=== PATIENT | male | born 1980 | race African-American/Black ===

== ENCOUNTER 2017-11-02 14:47 | Observation (INO) | payer SELFPAY ==
[2017-11-02] MEDS ORDERED: Nitroglycerin 2% Ointment 1 INCH/1 GM Packet ONE (15:18)
[2017-11-02 16:41] LABS: Troponin I 0.044 ng/mL (< 0.028)
[2017-11-02] MEDS ORDERED: Ondansetron ODT 4 MG TAB PO PRN (17:07)
[2017-11-02] MEDS ORDERED: Acetaminophen 325 MG TAB PO PRN (17:07)
[2017-11-02 17:15] VITALS: BMI 27.1
[2017-11-02 18:10] LABS: Bilirubin, Direct 1.5 mg/dL (0.1-0.3); Bilirubin, Total 3.3 mg/dL (0.2-1.2)
[2017-11-02 19:54] LABS: Troponin I 0.057 ng/mL (< 0.028)
[2017-11-02 20:27] LABS: Amphetamine Detected (NotDetected); Barbiturates Screen Not Detected (NotDetected); Benzodiazepine Screen Not Detected (NotDetected); Cocaine Metabolite Screen Not Detected (NotDetected); Medtox Control Line Valid? VALID (VALID); Medtox Reader # READER 1; Methadone Not Detected (NotDetected); Methamphetamine Detected (NotDetected); Opiate Screen Not Detected (NotDetected); Oxycodone Screen Not Detected (NotDetected); Phencyclidine (PCP) Not Detected (NotDetected); THC/Cannabinoid Screen Not Detected (NotDetected); Tricyclic Screen Not Detected (NotDetected)
--- NOTE | 2017-11-02 22:42 | HP-2 ---
DATE OF ADMISSION: 11/02/2017 CODE STATUS: FULL. PRIMARY CARE PHYSICIAN: Radha houston. ATTENDING: Gonzalo Contreras M.D. RESIDENT: Clif oGld D.O. SPECIALIST: Dr. Mendez, Cardiology. CHIEF COMPLAINT: Shortness of breath. HISTORY OF PRESENT ILLNESS: The patient presents with 4 days complaining of shortness of breath with acute worsening approximately 2 days ago. He states that he ran out of his Lasix and he attributes that to the worsening of his shortness of breath and associated cough. He was seen at the [facility] within the last 4 days it was worsen and they gave him some Lasix. He symptomatically improved and sent him home. Since then he has gotten progressively worse. He states that in addition to shortne ss of breath, he has cough; however, he denies orthopnea or chest pain. His last visit with Cardiolo gy was approximately one month ago where they discussed possibly placing an ICD; however, no firm inocencio n was placed. PAST MEDICAL HISTORY: Includes chronic kidney disease stage 2, congestive heart failure with reduced ejection fraction, dilated cardiomyopathy, substance abuse, hypertension, chronic normocytic anemia. PAST SURGICAL HISTORY: Includes a right foot I and D as a child. ALLERGIES: No known drug allergies. MEDICATIONS: Lisinopril 10 mg daily, Coreg 2.5 mg b.i.d., Lasix 40 mg daily, aspirin 81 mg p.o. imelda y. FAMILY HISTORY: He has a younger brother with unknown heart condition. SOCIAL HISTORY: Tobacco: 3 or 4 cigarettes a day for 2 years. EtOH: Social. Drugs: Methamphetam ine smoked. Denies intravenous use, most recent use was 1 week ago. Denies other drug use. REVIEW OF SYSTEMS: General: Denies fever, chills, change in appetite or night sweats. HEENT: Misael es any vision change or eye pain, nasal congestion, rhinorrhea. Respiratory: Admits to cough and sh ortness of breath. Denies congestion. Says that the shortness of breath did improve with Lasix. Ca rdiovascular: Denies chest pain, palpitations. Admits to edema. Gastrointestinal: Denies nausea, vomiting, diarrhea. Genitourinary: Denies incontinence or dysuria. Skin: Denies rashes or lesions . Musculoskeletal: Denies pain or tenderness. Neurologic: Denies weakness or numbness. Psychiatr ic: Denies anxiety or depression. PHYSICAL EXAMINATION: VITAL SIGNS: Blood pressure 157/113, pulse 113, respiratory rate is 18, T-max 98.7, pulse ox 98% on room air, current weight 83.9 kilograms. GENERAL: The patient is alert and oriented x3 in no apparent distress. Well-nourished and appropria tely interactive. HEENT: PERRLA, EOMI with scleral icterus. NECK: No lymphadenopathy with elevated JVD. CARDIOVASCULAR: Tachycardic with a 2/6 systolic murmur, no gallops. RESPIRATORY: Normal effort, no retractions. Clear to auscultation bilaterally. SKIN: Warm, dry without cyanosis or lesions. ABDOMEN: Soft with right lower quadrant tenderness. Normal bowel sounds in all 4 quadrants without masses or distention. EXTREMITIES: There is no clubbing, cyanosis. There is 1+ pitting edema to mid tibia. MUSCULOSKELETAL: Tone is normal. NEUROLOGICAL: No focal neurological deficits. Cranial nerves II-XII are grossly intact. PSYCHIATRIC: Appropriate. LABORATORY DATA: CBC: Hemoglobin 12.4, hematocrit 38.3, white count 6.2, platelets 273, MCV is 80. CMP: Sodium is 140, potassium is 3.6, chloride is 107. Bicarb is 21, BUN is 18, creatinine is 1.26 , glucose 154, GFR is 72, calcium is 9.5, total serum protein 7.9, albumin is 3.6, bilirubin is 3.2, AST 35, ALT 37, alkaline phosphatase 81, CK-MB 1.7, troponin 0.041, BNP 2696. VBG shows a pH of 7.41 , pCO2 of 37.5 and pO2 of 38.4. EKG shows left axis deviation, left atrial enlargement and sinus tac hycardia without ST segment elevation or depression. Chest x-ray shows mild vascular congestion. ASSESSMENT AND PLAN: This is a 36-year-old male with an acute congestive heart failure exacerbation. 1. Acute congestive heart failure exacerbation. The patient currently has no oxygen requirement. W e will monitor his oxygen status and give oxygen as needed. We will continue p.o. Lasix and 1500 mg fluid restriction with strict I's and O's. There is no need for echocardiogram that was completed in 02/2017, which is noted to be 25% ejection fraction. We continue to trend his troponins and admit t he patient to tele observation. 2. Hypertension. We will continue his home medications, compliance is questionable after a day of h is home medications, we reevaluate his hypertension and adjust as needed and also add hydralazine p.r .n. 3. Chronic kidney disease stage 2. The patient is at his baseline and monitor CMP. 4. Hyperbilirubinemia and a fractionated bilirubin. This is most likely elevated to hepatic congest ion secondary to the volume overload. 5. Elevated AST. We will get a right upper quadrant ultrasound in light of the elevated bilirubin. Monitor CMP. 6. Normocytic anemia, is chronic in nature. We will consider for further workup in an outpatient se tting. 7. Substance abuse. The patient admits to methamphetamine use, denies IV drug use. We will order U DS and counseled on cessation. 8. Symptomatic medications will be provided. This history, physical and management were discussed with Dr. Gonzalo Contreras.
[2017-11-03 04:29] LABS: #Eosinphils 0.1 thou/uL (0.0-0.7); #Lymphocytes 2.2 thou/uL (1.20-3.40); #Monocytes 0.5 thou/uL (0.11-0.59); #Neutrophils 2.6 thou/uL (1.40-6.50); %Basophils 0.9 % (0.0-1.0); %Eosinophils 2.3 % (0.0-10.0); %Lymphocytes 39.8 % (21.0-51.0); %Monocytes 9.4 % (0.0-10.0); %Neutrophils 47.7 % (42.0-75.0); Hemoglobin 12.1 g/dL (14.0-18.0); Mean Corpuscular HGB CONC 31.8 g/dL (32.0-36.0); Mean Corpuscular Hemoglobin 26.1 pg (27.0-31.0); Mean Corpuscular Volume 82.3 fl (80.0-94.0); Mean Platelet Volume 8.6 fL (7.4-10.4); Platelet Count 270 thou/uL (130-400); RBC Distribution Width 16.5 % (11.5-14.5); Red Blood Cell (RBC) Count 4.63 mill/uL (4.70-6.10); White Blood Cell (WBC) Count 5.5 thou/uL (4.8-10.8)
[2017-11-03 04:39] LABS: Anion Gap 10 mmol/L (10-20); BUN (Urea Nitrogen) 20 mg/dL (8.9-20.6); Calc. Creatinine Clearance 97 mL/min (70-130); Calcium 9.5 mg/dL (7.8-10.44); Carbon Dioxide 25 mmol/L (22-29); Chloride 105 mmol/L (98-107); Estimated GFR-MDRD 70; Glucose 117 mg/dL (70-105); Potassium 3.7 mmol/L (3.5-5.1); Sodium 136 mmol/L (136-145)
[2017-11-03] MEDS ORDERED: Furosemide 40 MG/4 ML VIAL SLOW IVP SCH (06:00)
[2017-11-03 06:20] LABS: Troponin I 0.044 ng/mL (< 0.028)
--- NOTE | 2017-11-03 07:45 | PDOC.FM ---
- Subjective Subjective: Pt feels much better today. He states that his SOB and cough have totally resolved. He denies other symptoms in ROS to include chest pain, dizziness, and edema. There were no acute events over night. - Objective Vital Signs & Weight: Vital Signs (12 hours) Temp Pulse Resp BP Pulse Ox 11/03/17 03:10 98.0 F 105 H 22 H 135/107 H 99 11/02/17 23:05 98.9 F 97 18 132/92 H 97 11/02/17 20:46 98 11/02/17 20:02 97.6 F 100 16 Weight Weight 92.079 kg I&O: 11/02/17 11/03/17 11/04/17 06:59 06:59 06:59 Intake Total 884 Output Total 450 Balance 434 Result Diagrams: 11/03/17 04:04 11/03/17 04:04 <Clif Gold - Last Filed: 11/03/17 07:43> - Objective Vital Signs & Weight: Vital Signs (12 hours) Temp Pulse Resp BP Pulse Ox 11/03/17 08:10 97.9 F 99 16 11/03/17 07:42 97.9 F 99 16 149/95 H 100 11/03/17 03:10 98.0 F 105 H 22 H 135/107 H 99 Weight Weight 92.079 kg I&O: 11/02/17 11/03/17 11/04/17 06:59 06:59 06:59 Intake Total 884 240 Output Total 450 2100 Balance 434 -1860 Result Diagrams: 11/03/17 04:04 11/03/17 04:04 <Omar Prado - Last Filed: 11/03/17 11:31> Phys Exam - Physical Examination Constitutional: NAD HEENT: PERRLA, moist MMs Neck: no nodes, no JVD Respiratory: clear to auscultation bilateral Cardiovascular: RRR, no significant murmur Gastrointestinal: soft, non-tender, no distention, positive bowel sounds Trace edema in bl ankle Neurological: non-focal, normal sensation, moves all 4 limbs Lymphatic: no nodes Psychiatric: normal affect, A&O x 3 Skin: no rash <Clif Gold - Last Filed: 11/03/17 07:43> Dx/Plan (1) Acute on chronic systolic (congestive) heart failure Code(s): I50.23 - ACUTE ON CHRONIC SYSTOLIC (CONGESTIVE) HEART FAILURE Status : Acute (2) Cardiomyopathy Code(s): I42.9 - CARDIOMYOPATHY, UNSPECIFIED Status: Chronic QualifierTitle: Cardiomyopathy type: dilated Qualified Code(s): I42.0 - Dilated cardiomyopathy (3) HTN (hypertension) Code(s): I10 - ESSENTIAL (PRIMARY) HYPERTENSION Status: Chronic (4) Substance abuse Code(s): F19.10 - OTHER PSYCHOACTIVE SUBSTANCE ABUSE, UNCOMPLICATED Status: Chronic (5) Hyperbilirubinemia Code(s): E80.6 - OTHER DISORDERS OF BILIRUBIN METABOLISM Status: Acute - Plan Plan: 1. Acute on Chronic sCHF - symptoms have resolved, pt appears to be euvolemic - continue beta betzy - pt had discussion w/normal insurance operations rep, Dr Torres, about an AICD. I will attempt to contact him for further insight into his plan 2. cardiomyopathy - cause of CHF - pt has had recent echo and is followed by cards. - continue management as above 3. Hyperbilirubinemia - unconjugated. Most likely Gilbert's vs hepatic congestion - Trended down 4. HTN - not at goal, however only marginally elevated. - recommend outpatient follow up for med dosing as this elevation could be stress related. 5. 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 Gold. I agree with the History, Examination, Assessment and Plan documented above with any addition or exceptions noted below. Patient admitted for mild CHF exacerbation due to medication noncompliance. He is also meth positive, which he has a history of. He is feeling well and has no shortness of breath or supplemental O2 requirement. He is stable for discharge home. <Omar Prado - Last Filed: 11/03/17 11:31>
[2017-11-03 08:06] VITALS: BP 149/95; TEMP 97.9
[2017-11-03] MEDS ORDERED: Enoxaparin Sodium 40 MG/0.4 ML SYRINGE SC SCH (09:00)
[2017-11-03] MEDS ORDERED: Carvedilol 25 MG TAB PO SCH (09:00)
[2017-11-03] MEDS ORDERED: Lisinopril 10 MG TAB PO SCH (09:00)
--- NOTE | 2017-11-03 09:13 | ULT ---
GALLBLADDER ULTRASOUND: Date: 11/03/17 INDICATION: Hyperbilirubinemia with shortness of breath. FINDINGS: No focal hepatic lesion. There is mild gallbladder wall thickening which is decreased in echogenicity at approximately 4.0 mm. This could relate to wall edema or alternatively entity such as cholesterol osis. No shadowing cholelithiasis. No evidence of abnormal biliary ductal dilatation. Plascencia's sign r eported as negative. The portal vein is patent, although there is an arterialization of flow demonstr ated, of indeterminate etiology. There is prominence of the imaged IVC. IMPRESSION: 1. Mild gallbladder wall thickening as above. Plascencia's sign reported as negative. Correlate clinical ly. 2. Altered waveform of the portal vein. This is nonspecific and of indeterminate etiology. Correlate for clinical evidence of portal hypertension. Gastroenterology consultation may also prove useful. POS: ENOC
--- NOTE | 2017-11-03 22:55 | DIS-2 ---
DATE OF ADMISSION: 11/02/2017 DATE OF DISCHARGE: 11/03/2017 RESIDENT: Clif Gold DO ADMITTING ATTENDING: Gonzalo Contreras M.D. DISCHARGE ATTENDING: Omar Prado MD CONSULTS: None. PROCEDURES: None. PRIMARY DIAGNOSIS: Acute congestive heart failure exacerbation. SECONDARY DIAGNOSES: Congestive heart failure with reduced ejection fraction, EF of 20-25%, CKD 2, c hronic normocytic anemia, and unconjugated hyperbilirubinemia. DISCHARGE MEDICATIONS: Coreg 12.5 mg p.o. daily, lisinopril 10 mg p.o. daily, furosemide 40 mg p.o. daily, aspirin 81 mg daily. DISCONTINUED MEDICATIONS: None. HOSPITAL COURSE: The patient was admitted from an outside facility with an acute CHF exacerbation. Upon arrival to the emergency room, the patient was given Lasix for diuresis. Abnormal labs at the t wiliam of admission included an elevated troponin to 0.044, hyperbilirubinemia to a level of 3.3. While admitted, the patient's troponins were trended with a maximum level of 0.057. This is most likely d ue to demand ischemia. Additionally, the patient's hyperbilirubinemia was determined to be most like ly related to a prior incision due to the fact that it was unconjugated. This could also be signific ant for Gilbert's disease. At no point during the time of hospitalization did the patient require ox ygen. The patient diuresed well while admitted and by the following morning was stable for discharge . Most likely reason for this patient's exacerbation is the fact that he had run out of his medicati ons. The patient has good outpatient followup and is typically well controlled. It was recommended to the patient that he follow up with his phlebotomy instructor and with the [facility] within a week of disch arge and his medications were refilled from the hospital. DISPOSITION: Stable. DISCHARGE INSTRUCTIONS: 1. Location: Home. 2. Diet: Heart healthy with 1500 mL per day of water restriction. 3. Activity within cardiopulmonary limits. 4. Follow up with Cardiology, Dr. Mendez and the [facility]F Clinic within a week or as previously scheduled.
== END 2017-11-03 13:24 | disposition home or self-care (01) ==
LOC: ERS 14:47 → 2SW 17:01
PROVIDERS: ADMIT Student in an Organized Health Care Education/Training Program; ATTEND Student in an Organized Health Care Education/Training Program
DX: I13.0 Hypertensive heart and chronic kidney disease with heart failure and stage 1 through stage 4 chronic kidney disease, or unspecified chronic kidney disease (principal); N18.2 Chronic kidney disease, stage 2 (mild); I50.9 Heart failure, unspecified; I42.0 Dilated cardiomyopathy; D64.9 Anemia, unspecified; E80.6 Other disorders of bilirubin metabolism; F17.210 Nicotine dependence, cigarettes, uncomplicated; F15.10 Other stimulant abuse, uncomplicated; R74.0 Nonspecific elevation of levels of transaminase and lactic acid dehydrogenase [LDH]; Z79.82 Long term (current) use of aspirin; Z79.899 Other long term (current) drug therapy; Z98.890 Other specified postprocedural states
CPT/HCPCS: 36415; 76705; 80048; 80306; 82247; 84484; 85025; 93005; 93798; 96372; 96374; G0378; J1650; J1940

== ENCOUNTER 2018-05-10 16:45 | Inpatient (IN) | payer SELFPAY ==
[2018-05-10 18:07] LABS: Bilirubin Negative (Negative); Blood, Urine Small (Negative); Clarity CLEAR (Clear); Glucose, Urine (Dipstick) Negative (Negative); Leukocyte Negative (Negative); Nitrite Negative (Negative); Protein, Urine (Dipstick) Negative (Neg-Trace); Specific Gravity, Urine 1.004 (1.002-1.036); pH, Urine 6.5 (5.0-9.0)
[2018-05-10 18:12] LABS: Bacteria/HPF None Seen HPF (None Seen); Hyaline Casts/LPF 0-3 HYALINE CAST LPF (0-3 Hyaline); Squamous Epithelial None Seen HPF (0-3); WBC/HPF None Seen HPF (0-3)
[2018-05-10 18:14] LABS: Acetaminophen Less than 6.0 mcg/mL (10.0-30.0); Alcohol Less than 10 mg/dL (Less than 10); Salicylate Less than 8.0 mg/dL (15.0-30.0)
[2018-05-10 18:21] LABS: Amphetamine Not Detected (NotDetected); Barbiturates Screen Not Detected (NotDetected); Benzodiazepine Screen Not Detected (NotDetected); Cocaine Metabolite Screen Not Detected (NotDetected); Medtox Control Line Valid? VALID (VALID); Medtox Reader # READER 1; Methadone Not Detected (NotDetected); Methamphetamine Not Detected (NotDetected); Opiate Screen Not Detected (NotDetected); Oxycodone Screen Not Detected (NotDetected); Phencyclidine (PCP) Not Detected (NotDetected); THC/Cannabinoid Screen Not Detected (NotDetected); Tricyclic Screen Not Detected (NotDetected)
[2018-05-10 18:50] LABS: Troponin I Less than 0.010 ng/mL (< 0.028)
[2018-05-10] MEDS ORDERED: Ondansetron ODT 4 MG TAB SL PRN (20:52)
[2018-05-10] MEDS ORDERED: Ondansetron HCl/PF 4 MG/2 ML Vial IVP PRN ×2 (20:52→21:42)
[2018-05-10] MEDS ORDERED: Nitroglycerin 2% Ointment 1 INCH/1 GM Packet TOP SCH (21:00)
[2018-05-10] MEDS ORDERED: Calcium Carbonate 500 MG ChewTAB PO PRN (21:42)
[2018-05-10] MEDS ORDERED: Acetaminophen 325 MG TAB PO PRN (21:42)
[2018-05-10] MEDS ORDERED: Ondansetron ODT 4 MG TAB PO PRN (21:42)
[2018-05-10] MEDS ORDERED: Senokot 8.6 MG TAB PO PRN (21:42)
[2018-05-10] MEDS ORDERED: Nitroglycerin 0.4 MG TAB (25 Tab Bottle) PO PRN (21:47)
--- NOTE | 2018-05-10 21:49 | PDOC.EVN ---
Event Note - Event Note Event Note: Patient seen and examined for CHF exacerbation.
[2018-05-10 21:55] VITALS: BMI 28.6
[2018-05-11] MEDS: Furosemide 40 MG/4 ML VIAL SLOW IVP SCH ×2 (05:55→14:45)
[2018-05-11] MEDS ORDERED: Furosemide 40 MG/4 ML VIAL SLOW IVP SCH (06:00)
[2018-05-11 06:30] LABS: ALT (SGPT) 15 U/L (8-55); AST (SGOT) 24 U/L (5-34); Albumin 3.3 g/dL (3.5-5.0); Alkaline Phosphatase 94 U/L (40-150); Anion Gap 13 mmol/L (10-20); BUN (Urea Nitrogen) 15 mg/dL (8.9-20.6); Bilirubin, Total 3.5 mg/dL (0.2-1.2); Calc. Creatinine Clearance 119 mL/min (70-130); Calcium 8.9 mg/dL (7.8-10.44); Carbon Dioxide 22 mmol/L (22-29); Chloride 107 mmol/L (98-107); Estimated GFR-MDRD 89; Glucose 125 mg/dL (70-105); Magnesium 1.5 mg/dL (1.6-2.6); Potassium 3.2 mmol/L (3.5-5.1); Protein, Total 7.3 g/dL (6.0-8.3); Sodium 139 mmol/L (136-145)
[2018-05-11] MEDS ORDERED: Magnesium 2 GM/NS 0.9% 100 ML 2 GM in Premix Bag 1 BAG IVPB SCH (08:00)
--- NOTE | 2018-05-11 08:04 | HP ---
The patient was seen and examined on 05/10/2018. CHIEF COMPLAINT: Shortness of breath. HISTORY OF PRESENT ILLNESS: The patient is a 37-year-old male with chronic systolic and diastolic heart failure, noncompliant with his medication, presented to the emergency room with shortness of breath that has been ongoing for a week or so. He gets short of breath on lying down flat. He noticed bilateral lower extremity swelling. He gets short of breath on mild to moderate exertion. He had mild cough without significant production. No fever , chills, wheezing, recent immobilization, travel, chest pain, palpitations, syncope reported. PAST MEDICAL HISTORY: 1. Chronic systolic/diastolic heart failure. 2. Chronic kidney disease stage 2. 3. Dilated cardiomyopathy. 4. History of polysubstance abuse. 5. Hypertension. 6. Chronic anemia. PAST SURGICAL HISTORY: Right foot surgery. ALLERGIES: No known drug allergies. CURRENT HOME MEDICATIONS: Patient is out of all of his medications. SOCIAL HISTORY: The patient currently lives at home, continues to smoke on a daily basis. He has a long history of methamphetamine abuse. He denies significant alcohol. FAMILY HISTORY: Younger brother with some heart condition. He is unable to provide details. PHYSICAL EXAMINATION: VITAL SIGNS: Vital signs on ER arrival showed temperature 97.9, respirations 28 , pulse rate of 120, blood pressure 158/125. GENERAL: A 37-year-old male in mild respiratory distress, able to complete short sentences. HEENT: Head atraumatic, normocephalic. Sclerae are anicteric. Moist mucous membrane, no oral lesion. NECK: Supple. No carotid bruit, JVD elevated. LUNGS: Showed bibasilar rales with scattered rhonchi, no wheezing. There was mild accessory muscle use. HEART: S1, S2 present. Regular rate and rhythm, 2/6 systolic murmur over the mitral area. No heaves or pulsation. ABDOMEN: Soft, nontender, bowel sounds present. EXTREMITIES: 3+ edema bilateral lower extremities, pitting. No calf tenderness. SKIN: Warm and dry. LYMPH NODES: No palpable lymph nodes in the neck. PERIPHERAL VASCULAR: Radial pulses palpable bilaterally. MUSCULOSKELETAL: No joint swelling or tenderness. LYMPH NODES: No palpable lymph nodes in the neck. PERIPHERAL VASCULAR: Radial pulses palpable bilaterally. MUSCULOSKELETAL: No joint swelling or tenderness. LABORATORY FINDINGS: BNP 2500. Potassium 3.2, total bilirubin 3.1, sodium 138 , potassium 3.2. CBC showed WBC 5.7 with hemoglobin 10.7. Urine drug screen was negative. Chest x-ray by my review showed pulmonary vascular congestion. EKG by my review showed sinus tachycardia with left ventricular hypertrophy and nonspecific ST-T wave changes. Corrected QT interval was 475, QRS duration was 88 milliseconds. IMPRESSION: 1. Acute on chronic systolic and diastolic heart failure exacerbation secondary to noncompliance. Start IV diuretics, Cont NTG patch, Resume ACEI/ Coreg. Add fluid restriction. 2. Hypertensive urgency. Add PRN meds, Add ACEI/Coreg 3. Chronic kidney disease stage 2. 4. Elevated liver function tests secondary to passive hepatic congestion. 5. History of substance abuse. Counselled. 6. Tobacco dependence. Counselled. 7. Chronic anemia. 8. Medication noncompliance. 9. Hypokalemia. Will replace Plan of care was discussed with the patient in detail. He stated understanding. MTDD
[2018-05-11] MEDS: Lisinopril 2.5 MG TAB PO SCH (08:17)
[2018-05-11] MEDS: Docusate 100 MG CAP PO SCH ×2 (08:17→20:18)
[2018-05-11] MEDS: Carvedilol 3.125 MG TAB PO SCH ×2 (08:17→20:18)
[2018-05-11] MEDS: Potassium Chloride 20 MEQ TAB PO SCH ×3 (08:17→16:39)
[2018-05-11] MEDS: Aspirin 81 mg Enteric Coated Tablet PO SCH (08:17)
[2018-05-11] MEDS: Famotidine 20 MG TAB PO SCH ×2 (08:17→20:18)
[2018-05-11] MEDS ORDERED: Aspirin 325 MG TAB PO SCH (09:00)
--- NOTE | 2018-05-11 21:49 | PDOC.PN ---
- Subjective Encounter Start Date: 05/11/18 Encounter Start Time: 12:00 Patient seen and examined for CHF flare. SOB improving. No overnight events. No CP/palpitations. - Objective Resuscitation Status: Resuscitation Status FULL:Full Resuscitation MAR Reviewed: Yes Vital Signs & Weight: Vital Signs (12 hours) Temp Pulse Resp BP BP Pulse Ox 05/11/18 20:00 97.8 F 92 20 126/89 99 05/11/18 16:35 97.5 F L 94 14 141/84 H 100 05/11/18 12:55 97.9 F 98 16 153/93 H 96 Weight Weight 205 lb 8 oz I&O: 05/10/18 05/11/18 05/12/18 06:59 06:59 06:59 Intake Total 600 580 Output Total 1650 3200 Balance -1050 -2620 Result Diagrams: 05/13/18 04:39 EKG Reviewed by me: Yes (Tele SR, NSVT earlier) Phys Exam - Physical Examination Constitutional: NAD Neck: no JVD, supple Respiratory: no wheezing, no rhonchi, clear to auscultation bilateral Bibasilar rales Cardiovascular: RRR, no rub no heaves/pulsations Gastrointestinal: soft, non-tender, no distention, positive bowel sounds Musculoskeletal: edema present (improving) Neurological: non-focal, normal sensation, moves all 4 limbs Psychiatric: normal affect, A&O x 3 Skin: no rash Dx/Plan - Plan DVT proph w/SCDs IMPRESSION: 1. Acute on chronic systolic and diastolic heart failure exacerbation secondary to noncompliance. 2. Hypertensive urgency. Add PRN meds, Add ACEI/Coreg 3. Electrolyte abnormalities - Hypokalemia, Hypomagnesemia 4. NSVT 5. Elevated liver function tests secondary to passive hepatic congestion. 6. History of substance abuse. Counselled. 7. Tobacco dependence. Counselled. 7. Chronic anemia/Medication noncompliance/Chronic kidney disease stage 2. PLAN: Cont IV diuretics Resume ACEI/Coreg Cont fluid restriction. Consult Cardiology for NSVT Replace Potassium and Magnesium Review of Systems - Review of Systems Respiratory: SOB with Excertion. negative: Cough, Dry, Shortness of Breath, Hemoptysis, Pleuritic Pain, Sputum, Wheezing Cardiovascular: negative: chest pain, palpitations, orthopnea, paroxysmal nocturnal dyspnea, edema, light headedness, other - Medications/Allergies Allergies/Adverse Reactions: Allergies Allergy/AdvReac Type Severity Reaction Status Date / Time No Known Drug Allergies Allergy Verified 05/17/17 23:29 Medications: Current Medications Acetaminophen (Tylenol) 650 mg PO Q4H PRN PRN Reason: Headache/Fever or Pain Aspirin (Ecotrin) 81 mg PO DAILY [facility] Last Admin: 05/11/18 08:17 Dose: 81 mg Calcium Carbonate (Tums) 1,000 mg PO Q4H PRN PRN Reason: Heartburn or Indigestion Carvedilol (Coreg) 3.125 mg PO BID [facility] Last Admin: 05/11/18 20:18 Dose: 3.125 mg Docusate Sodium (Colace) 100 mg PO BID [facility] Last Admin: 05/11/18 20:18 Dose: Not Given Famotidine (Pepcid) 20 mg PO BID [facility] Last Admin: 05/11/18 20:18 Dose: 20 mg Furosemide (Lasix) 40 mg SLOW IVP 0600,1400 [facility] Last Admin: 05/11/18 14:45 Dose: 40 mg Lisinopril (Zestril) 2.5 mg PO DAILY [facility] Last Admin: 05/11/18 08:17 Dose: 2.5 mg Nitroglycerin (Nitrostat) 0.4 mg PO Q5MIN PRN PRN Reason: Chest Pain Ondansetron HCl (Zofran Odt) 4 mg PO Q6H PRN PRN Reason: Nausea/Vomiting Ondansetron HCl (Zofran) 4 mg IVP Q6H PRN PRN Reason: Nausea/Vomiting Potassium Chloride (K-Dur) 20 meq PO TID[facility] Last Admin: 05/11/18 16:39 Dose: 20 meq Senna (Senokot) 2 tab PO HSPRN PRN PRN Reason: Constipation Sodium Chloride (Flush - Normal Saline) 10 ml IVF PRN PRN PRN Reason: Saline Flush Last Admin: 05/11/18 08:17 Dose: 10 ml
[2018-05-12 05:05] LABS: Anion Gap 14 mmol/L (10-20); BUN (Urea Nitrogen) 17 mg/dL (8.9-20.6); Calc. Creatinine Clearance 116 mL/min (70-130); Calcium 9.3 mg/dL (7.8-10.44); Carbon Dioxide 24 mmol/L (22-29); Chloride 105 mmol/L (98-107); Estimated GFR-MDRD 86; Glucose 100 mg/dL (70-105); Magnesium 1.6 mg/dL (1.6-2.6); Potassium 3.4 mmol/L (3.5-5.1); Sodium 140 mmol/L (136-145)
[2018-05-12] MEDS: Furosemide 40 MG/4 ML VIAL SLOW IVP SCH ×2 (05:48→14:33)
[2018-05-12] MEDS ORDERED: Magnesium 2 GM/NS 0.9% 100 ML 2 GM in Premix Bag 1 BAG IVPB SCH (07:45)
[2018-05-12] MEDS: Lisinopril 2.5 MG TAB PO SCH (10:24)
[2018-05-12] MEDS: Potassium Chloride 20 MEQ TAB PO SCH ×2 (10:24→18:14)
[2018-05-12] MEDS: Carvedilol 3.125 MG TAB PO SCH (10:25)
[2018-05-12] MEDS: Docusate 100 MG CAP PO SCH ×2 (10:25→21:32)
[2018-05-12] MEDS: Famotidine 20 MG TAB PO SCH ×2 (10:25→21:32)
[2018-05-12] MEDS: Aspirin 81 mg Enteric Coated Tablet PO SCH (10:25)
[2018-05-12] MEDS ORDERED: Spironolactone 25 MG TAB PO SCH (16:15)
--- NOTE | 2018-05-12 17:44 | PRG ---
DATE OF SERVICE: 05/12/2018 SUBJECTIVE: Mr. Fong is feeling well. He is diuresing well -3.3 liters yesterday. His edema has decreased. OBJECTIVE: VITAL SIGNS: Blood pressure 132/89, pulse 97 to regular. LUNGS: Clear. CARDIAC: Normal S1, normal S2. ABDOMEN: Soft, nontender. EXTREMITIES: Only mild edema. ASSESSMENT: 1. Cardiomyopathy. 2. Mildly hypokalemic. PLAN: 1. Add a spironolactone. 2. Continue to replete potassium. 3. Consider increasing carvedilol dose tomorrow. 4. ? candidate for defibrillator implantation. 5. Recheck base met tomorrow.
--- NOTE | 2018-05-12 22:36 | CON ---
DATE OF CONSULTATION: 05/12/2018 CARDIOLOGY CONSULTATION REASON FOR CONSULTATION: Congestive heart failure. 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 HISTORY OF PRESENT ILLNESS: Mr. Ian Fong is a very pleasant patient previously seen and evalua anali by Dr. Mendez, also has seen Dr. Powers. The patient has a history of dilated cardiomyopathy thoug ht to be nonischemic secondary to drug use. He underwent cardiac catheterization, did not have obstr uctive coronary disease. He was diagnosed with dilated cardiomyopathy. He did wear a LifeVest for s ome time. Later was taken off the LifeVest because he could not afford to continue it. He was suppo sed to be enrolled in the Entrest[employer] trial, but apparently did not follow up back in 2017. His EF was 10%-15% at that time. The patient was admitted to the hospital with progressive shortness of breath and peripheral edema during this admission. The patient has got a good diuresis. PAST MEDICAL HISTORY: 1. Nonischemic cardiomyopathy. 2. Chronic kidney disease stage 2. 3. History of substance abuse. 4. Hypertension. 5. History of anemia. PAST SURGICAL HISTORY: Right foot surgery. MEDICATIONS: It appeared that he had ran out of all of his medicines. SOCIAL HISTORY: Continued to smoke. FAMILY HISTORY: Younger brother with heart condition. REVIEW OF SYSTEMS: CONSTITUTIONAL: No significant weight gain or loss. VISION: No changes. HEARI NG: No changes. PULMONARY: No cough or wheezing. GASTROINTESTINAL: No nausea, vomiting, diarrhea . SKIN: No rashes. NEUROLOGIC: No unilateral weakness or numbness. PSYCHIATRIC: No unusual depr ession or anxiety. PHYSICAL EXAMINATION: GENERAL: This is a pleasant gentleman in no distress. VITAL SIGNS: His initial blood pressure was very high earlier during the hospitalization 158/125, pu lse of 120. Now, the blood pressure is still high 151/102, pulse 97. EYES: Sclerae nonicteric. MOUTH: Mucous membranes moist. NECK: Supple, no lymphadenopathy. LUNGS: Clear, no wheezing, rales or rhonchi. CARDIAC: Normal S1, normal S2. There is no murmur, rub or gallop. ABDOMEN: Soft, nontender, no hepatosplenomegaly. EXTREMITIES: Warm, dry, no clubbing or cyanosis. There is only mild edema now. PERTINENT LABORATORY DATA AND IMAGING DATA: Potassium is 3.4. Toxicology screen was negative on the . Echocardiogram done a year ago showed severely depressed left ventricular function as mention ed. EKG; sinus rhythm, no acute changes, left axis deviation. Chest x-ray showed severe cardiomegal y. ASSESSMENT: 1. Dilated cardiomyopathy. 2. History of noncompliance. PLAN: 1. Intravenous diuretics probably change to oral tomorrow. 2. Beta blockers, increase Coreg tomorrow. 3. Start spironolactone. 4. Stressed to the patient the importance of taking medicines as prescribed. If the patient's eject ion fraction does not improve with these medicines, defibrillator implantation should be considered. Apparently, the patient was seen last year it is not clear if he is followed up since then.
--- NOTE | 2018-05-12 23:39 | PDOC.PN ---
- Subjective Encounter Start Date: 05/12/18 Encounter Start Time: 13:00 Patient seen and examined for CHF. SOB improving. No CP/SOB. No other complaints. No overnight events - Objective Resuscitation Status: Resuscitation Status FULL:Full Resuscitation MAR Reviewed: Yes Vital Signs & Weight: Vital Signs (12 hours) Temp Pulse Resp BP Pulse Ox 05/12/18 21:30 97.7 F 95 16 126/83 97 05/12/18 15:45 97.5 F L 86 20 135/82 99 05/12/18 11:45 97 20 132/89 100 Weight Weight 196 lb 3.2 oz I&O: 05/11/18 05/12/18 05/13/18 06:59 06:59 06:59 Intake Total 600 1034 1135 Output Total 2141 1967 5565 Balance -1010 -5449 -1327 Result Diagrams: 05/13/18 04:39 EKG Reviewed by me: Yes (Tele SR) Phys Exam - Physical Examination Constitutional: NAD Respiratory: no wheezing, no rhonchi Scat rales at bases Cardiovascular: RRR, no rub Gastrointestinal: soft, non-tender, positive bowel sounds Musculoskeletal: edema present (improving) Neurological: moves all 4 limbs Dx/Plan - Plan out of bed/ambulate, DVT proph w/SCDs IMPRESSION: 1. Acute on chronic systolic and diastolic heart failure exacerbation secondary to noncompliance. improving 2. Hypertensive urgency. 3. Electrolyte abnormalities - Hypokalemia, Hypomagnesemia 4. NSVT 5. Elevated liver function tests secondary to passive hepatic congestion. 6. History of substance abuse. Counselled. 7. Tobacco dependence. Counselled. 7. Chronic anemia/Medication noncompliance/Chronic kidney disease stage 2. PLAN: Replace Electrolytes Cont current dose of IV Lasix Cont Coreg and ACEI AM labs Cont fluid restriction. Cont other meds as below Review of Systems - Review of Systems Respiratory: negative: Cough, Dry, Shortness of Breath, Hemoptysis, SOB with Excertion, Pleuritic Pain, Sputum, Wheezing Cardiovascular: negative: chest pain, palpitations, orthopnea, paroxysmal nocturnal dyspnea, edema, light headedness, other - Medications/Allergies Allergies/Adverse Reactions: Allergies Allergy/AdvReac Type Severity Reaction Status Date / Time No Known Drug Allergies Allergy Verified 05/17/17 23:29 Medications: Current Medications Acetaminophen (Tylenol) 650 mg PO Q4H PRN PRN Reason: Headache/Fever or Pain Aspirin (Ecotrin) 81 mg PO DAILY [facility] Last Admin: 05/12/18 10:25 Dose: 81 mg Calcium Carbonate (Tums) 1,000 mg PO Q4H PRN PRN Reason: Heartburn or Indigestion Carvedilol (Coreg) 6.25 mg PO BID [facility] Docusate Sodium (Colace) 100 mg PO BID [facility] Last Admin: 05/12/18 21:32 Dose: 100 mg Famotidine (Pepcid) 20 mg PO BID [facility] Last Admin: 05/12/18 21:32 Dose: 20 mg Furosemide (Lasix) 40 mg SLOW IVP 0600,1400 [facility] Last Admin: 05/12/18 14:33 Dose: 40 mg Lisinopril (Zestril) 2.5 mg PO DAILY [facility] Last Admin: 05/12/18 10:24 Dose: 2.5 mg Nitroglycerin (Nitrostat) 0.4 mg PO Q5MIN PRN PRN Reason: Chest Pain Ondansetron HCl (Zofran Odt) 4 mg PO Q6H PRN PRN Reason: Nausea/Vomiting Ondansetron HCl (Zofran) 4 mg IVP Q6H PRN PRN Reason: Nausea/Vomiting Potassium Chloride (K-Dur) 40 meq PO BID-[facility] Last Admin: 05/12/18 18:14 Dose: 40 meq Senna (Senokot) 2 tab PO HSPRN PRN PRN Reason: Constipation Sodium Chloride (Flush - Normal Saline) 10 ml IVF PRN PRN PRN Reason: Saline Flush Last Admin: 05/12/18 10:24 Dose: 10 ml Spironolactone (Aldactone) 25 mg PO QAM-[facility]
[2018-05-13 05:14] LABS: Anion Gap 13 mmol/L (10-20); BUN (Urea Nitrogen) 17 mg/dL (8.9-20.6); Calc. Creatinine Clearance 85 mL/min (70-130); Calcium 8.9 mg/dL (7.8-10.44); Carbon Dioxide 25 mmol/L (22-29); Chloride 104 mmol/L (98-107); Estimated GFR-MDRD 63; Glucose 149 mg/dL (70-105); Magnesium 2.1 mg/dL (1.6-2.6); Potassium 4.1 mmol/L (3.5-5.1); Sodium 138 mmol/L (136-145)
[2018-05-13] MEDS: Furosemide 40 MG/4 ML VIAL SLOW IVP SCH (05:45)
[2018-05-13] MEDS ORDERED: Spironolactone 25 MG TAB PO SCH (08:00)
[2018-05-13] MEDS: Potassium Chloride 20 MEQ TAB PO SCH (08:53)
--- NOTE | 2018-05-13 08:57 | PDOC.CTH ---
Cardiology Progress Note - Subjective Awake, sitting up in chair at bedside. Feels much better, denies any shortness of breath or chest pain. States swelling is "almost gone". Has not seen any disease management nurse since last visit to the hospital in February 2017. Was going to the HF , but stopped that as well. Ran out of his medications 1 week ago, has problem getting from his house to the pharmacy. No overnight cardiac events. - Objective Vital Signs Temp Pulse Resp BP BP Pulse Ox 05/13/18 03:58 97.8 F 77 17 126/97 H 99 05/12/18 21:30 97.7 F 95 16 126/83 97 Weight 196 lb 3.2 oz 05/12/18 05/13/18 05/14/18 06:59 06:59 06:59 Intake Total 1034 1615 Output Total 4400 4800 Balance -3281 -6860 - Physical Examination General/Neuro: alert & oriented x3, NAD Neck: no JVD present Lungs: CTA, unlabored respirations Heart: RRR, other: (Tachycardic) Extremities: other: (trace edema to BLE) - Telemetry Telemetry Rhythm: ST/SR 80s-100s - Labs Result Diagrams: 05/13/18 04:39 Troponin/CKMB Troponin I 0.010 ng/mL (< 0.028) 05/10/18 20:28 - Assessment/Plan 1. Nonischemic CM-EF 20-25% 03/08. Volume status much improved, weight down 9 pounds since admission, trace BLE edema. Poor compliance with meds, reinforced importance of strict adherence to HF medications. Transition to PO furosemide, increase carvedilol-titrate up as tolerated. Consideration for ICD insertion if EF does not improve 2. Essential HTN-adequately controlled. 3. CKD-Creatinine 1.52, transition to PO diuretics 4. Hypokalemia-resolved, continue spironolactone 5. History of substance abuse-tox screen negative Schedule echo for today, then okay to d/c. F/U with within 2 weeks. Stress importance of f/u with disease management nurse for continuation of care.
[2018-05-13] MEDS ORDERED: Carvedilol 6.25 MG TAB PO SCH ×2 (09:00→17:00)
[2018-05-13] MEDS ORDERED: Furosemide 40 MG/4 ML VIAL SLOW IVP SCH (09:00)
[2018-05-13] MEDS: Famotidine 20 MG TAB PO SCH (09:04)
[2018-05-13] MEDS: Lisinopril 2.5 MG TAB PO SCH (09:04)
[2018-05-13] MEDS: Aspirin 81 mg Enteric Coated Tablet PO SCH (09:04)
[2018-05-13] MEDS: Docusate 100 MG CAP PO SCH (09:05)
--- NOTE | 2018-05-13 09:49 | PDOC.CTH ---
Cardiology Progress Note - Subjective Awake, sitting up in chair at bedside. Feels much better, - Objective Vital Signs Temp Pulse Resp BP BP Pulse Ox 05/13/18 03:58 97.8 F 77 17 126/97 H 99 05/12/18 21:30 97.7 F 95 16 126/83 97 Weight 196 lb 3.2 oz 05/12/18 05/13/18 05/14/18 06:59 06:59 06:59 Intake Total 1034 1615 Output Total 4400 4800 Balance -1988 -1341 - Labs Result Diagrams: 05/13/18 04:39 Troponin/CKMB Troponin I 0.010 ng/mL (< 0.028) 05/10/18 20:28
[2018-05-13 12:53] VITALS: BP 124/82; TEMP 97.7
[2018-05-13] MEDS ORDERED: Furosemide 40 MG TAB PO SCH (14:00)
--- NOTE | 2018-05-13 18:00 | DIS ---
DATE OF DISCHARGE: 05/13/2018 DISCHARGE DISPOSITION: Home. FOLLOWUP: 1. Follow up with primary care physician at [facility] in 1 week. 2. Follow up with Dr. Kaur in 2 weeks. ALLERGIES: Patient denies any drug allergies. The patient was extensively counseled on congestive heart failure. DISCHARGE MEDICATIONS: Aspirin 81 mg daily, carvedilol 12.5 mg b.i.d., Lasix 40 mg daily, lisinopril 2.5 mg daily, and Aldactone 25 mg daily. Repeat base met after 1 week is recommended. Primary care physician is advised to follow. BRIEF HOSPITAL COURSE: Patient is a 37-year-old male with chronic systolic heart failure, ejection f raction 10% to 15% in the past, medication noncompliance, hypertension, and polysubstance abuse who p resented to the hospital with shortness of breath. Please refer to the history and physical dated for further details. The patient was admitted to the hospital with a diagnosis of acute on chronic systolic and diastolic heart failure exacerbation. He was started on IV diuretics, nitropatch, and was placed on fluid rest riction. ROSIE inhibitor and beta blockers were recently started. He showed good improvement with diu retics. His weight is down to 196 pounds from 205 pounds. He was seen by Cardiology, Dr. Kaur for congestive heart failure as well as nonsustained ventricular tachycardia. Beta betzy dose was inc reased. He had some electrolyte abnormalities including hypokalemia with potassium 3.2 and hypomagne semia with magnesium 1.5 that has been replaced. He has been cleared by Cardiology for discharge aft er an. Echocardiogram will be done prior to discharge. FINAL DIAGNOSES: 1. Acute on chronic systolic and diastolic heart failure exacerbation. 2. Hypertensive urgency. 3. Chronic kidney disease stage 2. 4. Abnormal liver function tests secondary to passive hepatic congestion. 5. History of substance abuse. patient was extensively counseled. 6. Tobacco dependence. Patient was counseled. 7. Chronic anemia. 8. Hypokalemia. 9. Hypomagnesemia. 10. Nonsustained ventricular tachycardia. 11. Medication noncompliance. 12. Chronic anemia. Total time coordinating the discharge of this patient was 33 minutes.
[2018-05-14] MEDS ORDERED: Potassium Chloride 20 MEQ TAB PO SCH (08:00)
--- NOTE | 2018-05-14 08:20 | ADD-PRG ---
DATE OF SERVICE: 05/13/2018 ADDENDUM Mr. Fong as mentioned had severely depressed left ventricular function. He has been started back on heart failure medicines. It has been stressed and it is critical for him to take medicines as pr escribed and the importance of keeping follow up. He needs to be on the medicines for 3 months to se e if his ejection fraction will be over 35%. If not, he may be a candidate for defibrillator implant ation. The patient has not kept follow up in the past. I have told him that it is critical that he k eep followups and take medicines or else the prognosis will be very poor and likely result in early d eath. He understands that.
== END 2018-05-13 16:21 | disposition home or self-care (01) | DRG 291 ==
LOC: ERS 16:45 → 2NO 18:09
PROVIDERS: ADMIT Internal Medicine; ATTEND Internal Medicine
DX: I13.0 Hypertensive heart and chronic kidney disease with heart failure and stage 1 through stage 4 chronic kidney disease, or unspecified chronic kidney disease (principal); I50.43 Acute on chronic combined systolic (congestive) and diastolic (congestive) heart failure; I47.2 Ventricular tachycardia; I25.5 Ischemic cardiomyopathy; E87.6 Hypokalemia; N18.2 Chronic kidney disease, stage 2 (mild); I16.0 Hypertensive urgency; E83.42 Hypomagnesemia; K76.1 Chronic passive congestion of liver; F17.210 Nicotine dependence, cigarettes, uncomplicated; D63.1 Anemia in chronic kidney disease; Z91.14 Patient's other noncompliance with medication regimen; F19.10 Other psychoactive substance abuse, uncomplicated; I42.0 Dilated cardiomyopathy
CPT/HCPCS: 36415; 80048; 80053; 80306; 80307; 81003; 81015; 83735; 93798; 94760; 99285; A4216; J1940; J3475

== ENCOUNTER 2018-10-23 21:32 | Inpatient (IN) | payer SELFPAY ==
--- NOTE | 2018-10-23 23:15 | RAD ---
CHEST ONE VIEW: 10/23/18 HISTORY: 37-year-old male with history of dyspnea, congestive heart failure and shortness of breath. COMPARISON: 10/23/18. Marked cardiomegaly. No confluent pneumonia, overt edema, or pleural effusion. IMPRESSION: Cardiomegaly without other significant acute process. Stable from earlier 10/23/18 study. POS: [facility]
--- NOTE | 2018-10-23 23:35 | PDOC.FPRHP ---
- History of Present Illness Chief Complaint: BLE swelling History of Present Illness: 37 yo AAM with history of HFrEF (EF 25-30%) presents as a transfer from [place] ED for bilateral lower extremity swelling and pain for the past 4 days. In [place] ED, patient had crackles in bilateral lower lobes and CXR showed minimal pulmonary congestion. BNP was elevated to 2200, trop was indeterminate. He was given 40 IV lasix. He had a K of 3.1 and was given 40 meq of K. D-dimer was elevated to 5.8, but CTA showed no PE. Patient states that he has not been following his diet appropriately, and increased salt intake over the holidays. Patient reports he has not taken some of his blood pressure medications today, and has a history of noncompliance. Pt denies chest pain or palpitations, denies wheezing or SOB, denies fevers. EKG shows sinus tachycardia to 108 bpm, with nonspecific T wave changes. In [place], - Allergies/Adverse Reactions Allergies Allergy/AdvReac Type Severity Reaction Status Date / Time No Known Drug Allergies Allergy Verified 10/24/18 00:48 - Home Medications Medication Instructions Recorded Confirmed Type Carvedilol [Coreg] 12.5 mg PO BID #60 tablet 05/13/18 10/24/18 Rx Furosemide [Lasix] 40 mg PO DAILY #14 tab 05/13/18 10/24/18 Rx Lisinopril [Zestril] 10 mg PO DAILY 10/24/18 10/24/18 History - History PMHx: mixed systolic and diastolic CHF, CKD2, dilated cardiomyopathy, hx of polysubstance abuse (meth), tobacco use, HTN, chronic anemia PSHx: left foot surgery FHx: brother with CHF and DM Social: 3 cig/day, started smoking age 16; denies alcohol use, used meth 1 month ago - Review of Systems General: reports: fatigue. denies: fever/chills, weight/appetite/sleep changes Eyes: denies: eye pain, vision changes ENT: denies: nasal congestion, rhinorrhea Respiratory: denies: cough, congestion, shortness of breath, exercise intolerance Cardiovascular: reports: edema. denies: chest pain, palpitation Gastrointestinal: denies: nausea, vomiting, diarrhea, constipation, abdominal pain, GI bleeding Genitourinary: denies: dysuria, polyuria Skin: denies: rashes, lesions Musculoskeletal: reports: pain (legs), swelling Neurological: denies: numbness, syncope, weakness Psychological: denies: anxiety, depression - Vital signs BP: [129/92] HR: [92] RR: [20] Tmax: [98.8] Pox: [100]% on [RA] Wt: [93 kg] - Physical Exam Constitutional: NAD, awake, alert and oriented, well developed HEENT: normocephalic and atraumatic, PERRLA, EOMI, conjunctiva clear, grossly normal hearing, MMM, oropharynx clear Neck: supple, no LAD Heart: RRR, normal S1/S2, other (edema 3+ pitting edema bilat lower extremities with erythema and warmth) -Heart: Systolic 1/6 murmur Lungs: CTAB, no wheezing, other (decreased air movement to bases bilat) Musculoskeletal: normal structure, normal tone Neurological: no focal deficit Skin: no rash/lesions, good turgor, capillary refill <2 seconds Heme/Lymphatic: no unusual bruising or bleeding Psychiatric: normal mood and affect, good judgment and insight, intact recent and remote memory FMR H&P: Results - Labs Result Diagrams: 10/24/18 02:45 - EKG Interpretation EKG: Non specific T wave changes, sinus tachycardia - Radiology Interpretation CT scan - chest Additional comment: No Pulmonary embolus, showed fluid overload Chest x-ray Status: image reviewed by me Additional comment: very mild pulmonary congestion FMR H&P: A/P - Problem List (1) Acute on chronic systolic (congestive) heart failure Current Visit: No Status: Acute Code(s): I50.23 - ACUTE ON CHRONIC SYSTOLIC (CONGESTIVE) HEART FAILURE Comment: prior ef of 10-15% (2) Hypokalemia Current Visit: No Status: Acute Code(s): E87.6 - HYPOKALEMIA (3) CKD (chronic kidney disease) Current Visit: Yes Status: Chronic Code(s): N18.9 - CHRONIC KIDNEY DISEASE, UNSPECIFIED (4) Chronic anemia Current Visit: Yes Status: Chronic Code(s): D64.9 - ANEMIA, UNSPECIFIED (5) Hyperbilirubinemia Current Visit: No Status: Chronic Code(s): E80.6 - OTHER DISORDERS OF BILIRUBIN METABOLISM (6) Polysubstance abuse Current Visit: No Status: Acute Code(s): F19.10 - OTHER PSYCHOACTIVE SUBSTANCE ABUSE, UNCOMPLICATED (7) Cardiomyopathy Current Visit: No Status: Chronic Code(s): I42.9 - CARDIOMYOPATHY, UNSPECIFIED Qualifiers: Cardiomyopathy type: dilated Qualified Code(s): I42.0 - Dilated cardiomyopathy (8) HTN (hypertension) Current Visit: No Status: Chronic Code(s): I10 - ESSENTIAL (PRIMARY) HYPERTENSION Qualifiers: - Plan 37 yo AAM with history of HFrEF (EF 25-30%) presents as a transfer from [facility] with CHF exacerbation CHF exacerbation - HFrEF (EF 20-25%) - Lasix 40 mg IV BID - Admit to tele obs - Echo in AM - Cardiology consult in AM - Trending trops - Strict I/Os - Daily weights - Fluid restrict to 1500 ml/day Elevated Bili - Most likely 2/2 to hepatic congestion - Check fractionated bili Hypokalemia - K 3.1, Received 40 meq in [place] - Recheck K in the AM - Start on 20 meq K daily CKD2 - Continue to monitor Dilated cardiomyopathy - Last EF 25-30% in 02/2017 Meth abuse - aware Tobacco - smokes 3 cig/day HTN -Continue home carvedilol, lisinopril Chronic anemia -consider starting Fe Dispo: most likely discharge tomorrow, pending clinical picture Diet: HH, fluid restricted to 1500 ml/day Code status: full code Ppx: lovenox FMR H&P: Upper Level - Pertinent history 37 yo AAM PMH polysubstance abuse, non-ischemic cardiomyopathy, and HFrEF (20-25 %). Presents as transfer from [facility] with 4 day history of leg swelling and weight gain. States he did not take his coreg today. States he has not been fluid restricting or monitoring his salt intake. No PCP and has not followed up with cardiology for AICD evaluation/placement. Meds prescribed by HF clinic. States the SUPERVIS[employer]CH[employer] at the HF clinic was going to increase his lasix to 40 mg BID but had not yet. States his last methamphetamine use was 1 month ago. ER: Labs, EKG, CXR, lasix 40 mg IVP, KCl 40 mEq PO - Pertinent findings Vital WNL GEN: NAD Lung: CTA-B, normal effort CV: Tachycardic, regular, no murmur Ext: 2+ pitting edema to knees bilaterally. CXR: No acute processes CTA- Chest: No PE, mild pulmonary edema. EKG: Rate 108, sinus tachycardia, No ST elevations, nonspecific ST changes, QTc 493, [place] 152 Labs: BNP 2245, Trop 0.057, 0.055, K+ 3.1, Cr 1.55 (baseline), Bili 2.2, D- dimer 5.8 - Plan Date/Time: 10/23/18 1347 I, Eitan Duran MD, have evaluated this patient and agree with findings/plan as outlined by consultants intern resident. Pertinent changes/additions are listed here. 1. Acute HFrEF exacerbation: BNP near baseline and vitals stable but given hx non-compliance and recent weight gain, will obs for diuresis. Start lasix 40 mg BID IVP, strict I&O, daily wt, repeat TTE in morning since no recent echo. Consider cardiology consultation to discuss AICD placement in hospital vs. outpatient. Will arranged f/u at HF clinic. Restart home medications. 2. Non-ischemic cardiomyopathy: patient admits to continued tobacco and methamphetamine use. Encouraged cessation 3. Tobacco abuse: PRN patch 4. HTN: Home meds. 5. Polysubstance abuse: encouraged cessation 6. Hypokalemia: repeat BMP in AM 7. Elevated troponin: trend x3 8. Hyperbilirubinemia: likely 2/2 hepatic congestion, will check total and direct level 9. CKD3: Stable, monitor BMP - PPx: lovenox - Diet: HH, fluid restrict 1500 mL/day - CODE: FULL - DISPO: OBS, Tele, <[address] Hall. Addendum - Attending - Attending Attestation Date/Time: 10/24/18 7274 I personally evaluated the patient and discussed the management with Dr. Retana. I agree with the History, Examination, Assessment and Plan documented above with any addition or exceptions noted below. The patient was transferred from [place] with CHF exacerbation. Pt had a run of vtach on tele strips this morning. Will continue diuresis. Consulting cardiology for possible aicd. Pt had elevated d-dime though CTA negative. Will check le dopplers.
[2018-10-24 00:21] LABS: CKMB 2.4 ng/mL (0-6.6)
[2018-10-24] MEDS ORDERED: Bisacodyl 10 MG SUPP PR PRN (00:34)
[2018-10-24] MEDS ORDERED: Acetaminophen 325 MG TAB PO PRN (00:34)
[2018-10-24] MEDS ORDERED: Acetaminophen 650 MG Suppository PR PRN (00:34)
[2018-10-24] MEDS ORDERED: Senokot S 8.6-50 MG TAB PO PRN (00:34)
[2018-10-24] MEDS ORDERED: Ondansetron PF 4 MG/2 ML Vial IVP PRN (00:34)
[2018-10-24] MEDS ORDERED: Ondansetron ODT 4 MG TAB PO PRN (00:34)
[2018-10-24] MEDS ORDERED: Enoxaparin Sodium 40 MG/0.4 ML SYRINGE SC SCH (00:45)
[2018-10-24 01:25] VITALS: BMI 29.0
[2018-10-24] MEDS ORDERED: Nicotine 14 MG PATCH TD PRN (01:41)
[2018-10-24 03:20] LABS: Troponin I 0.069 ng/mL (< 0.028)
[2018-10-24 03:22] LABS: Anion Gap 12 mmol/L (10-20); BUN (Urea Nitrogen) 26 mg/dL (8.9-20.6); Calc. Creatinine Clearance 96 mL/min (70-130); Calcium 8.9 mg/dL (7.8-10.44); Carbon Dioxide 24 mmol/L (22-29); Chloride 104 mmol/L (98-107); Estimated GFR-MDRD 66; Glucose 154 mg/dL (70-105); Potassium 3.2 mmol/L (3.5-5.1); Sodium 137 mmol/L (136-145)
[2018-10-24] MEDS: Furosemide 40 MG/4 ML VIAL SLOW IVP SCH ×2 (06:06→14:38)
[2018-10-24 08:21] LABS: Troponin I 0.046 ng/mL (< 0.028)
--- NOTE | 2018-10-24 08:37 | PDOC.FM ---
- Subjective Subjective: This morning patient denies CP, SOB, or orthopnea. States his legs are still somewhat painful but are improving. 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 States "I slipped up" on the meth, but has been clean for a month now. States he is motivated to do whatever he needs to do to get better at this point. patient states he is able to workout daily, doing "pushups , pull-ups, and calisthenics." States he has been taking his carvedilol, lisinorpil, statin, and furosemide as prescribed. he has been getting his medications from the HF clinic. - Objective Vital Signs & Weight: Vital Signs (12 hours) Temp Pulse Resp BP Pulse Ox 10/24/18 07:17 98 F 112 H 17 124/86 100 10/24/18 04:08 98.6 F 111 H 20 116/85 96 10/24/18 00:29 98.0 F 101 H 16 140/102 H 99 Weight Weight 97.296 kg I&O: 10/23/18 10/24/18 10/25/18 06:59 06:59 06:59 Intake Total 304 Output Total 475 700 Balance -171 -700 Result Diagrams: 10/24/18 02:45 Phys Exam - Physical Examination Constitutional: NAD HEENT: PERRLA, moist MMs Neck: no nodes Respiratory: no wheezing mild decreased breath sounds at the bases Cardiovascular: no significant murmur tachycardic, regular rhythm Gastrointestinal: soft, non-tender, no distention, positive bowel sounds Musculoskeletal: pulses present +3 edema to the mid-calf bilaterally Neurological: non-focal, moves all 4 limbs Psychiatric: normal affect, A&O x 3 Skin: no rash, cap refill <2 seconds Dx/Plan (1) Acute on chronic systolic (congestive) heart failure Code(s): I50.23 - ACUTE ON CHRONIC SYSTOLIC (CONGESTIVE) HEART FAILURE Status : Acute (2) Polysubstance abuse Code(s): F19.10 - OTHER PSYCHOACTIVE SUBSTANCE ABUSE, UNCOMPLICATED Status: Acute (3) Cardiomyopathy Code(s): I42.9 - CARDIOMYOPATHY, UNSPECIFIED Status: Chronic Qualifiers: Cardiomyopathy type: dilated Qualified Code(s): I42.0 - Dilated cardiomyopathy (4) CKD (chronic kidney disease) Code(s): N18.9 - CHRONIC KIDNEY DISEASE, UNSPECIFIED Status: Chronic - Plan Plan: 37 yo AAM with history of HFrEF (EF 25-30%) presents as a transfer from [place] [facility] with CHF exacerbation # CHF exacerbation - HFrEF EF 20-25% March 2017, 5% per echo 10/24/18 - Lasix 40 mg IV BID, carvedilol, lisinopril, spironolactone - Cardiology consulted, appreciate recs - trop .057-> .055-> .065, suspect demand ischemia - Strict I/Os, Daily weights, Fluid restrict to 1500 ml/day - discharged in April 2018 at weight of 196lbs, currently weighs 213lbs - only PVCs, sinus tachycardia on tele overnight - Patient may need defibrilator vs lifevest # Hypokalemia - K 3.2 this AM - replete # CKD2 # Meth abuse - 1 mo clean Tobacco - smokes 3 cig/day # HTN -Continue home carvedilol, lisinopril # Elevated Bili - Most likely 2/2 to hepatic congestion - has been elevated historically # Chronic anemia Dispo: pending cardiology eval, diuresis, likely 2-3 days Diet: HH, fluid restricted to 1500 ml/day Code status: full code Ppx: lovenox Addendum - Attending - Attending Attestation Date/Time: 10/24/18 5802 I personally evaluated the patient and discussed the management with Dr. Retana. I agree with the History, Examination, Assessment and Plan documented above with any addition or exceptions noted below. Will continue lasix for diuresis. Consulting cardiology. Changing to inpt.
[2018-10-24] MEDS: Lisinopril 10 MG TAB PO SCH (08:42)
[2018-10-24] MEDS: Carvedilol 6.25 MG TAB PO SCH ×2 (08:42→21:07)
[2018-10-24] MEDS: Potassium Chloride 20 MEQ TAB PO SCH ×3 (08:42→17:04)
[2018-10-24] MEDS: Spironolactone 25 MG TAB PO SCH (08:45)
--- NOTE | 2018-10-24 10:20 | PDOC.EVN ---
Event Note - Event Note Event Note: 5 beats of vtach on tele patient denies cp, weakness, or palpitations Cardiology consulted, appreciate recs ordered bilateral lower ext doppler 2/2 leg pain, elevated dimer
--- NOTE | 2018-10-24 15:34 | ULT ---
BILATERAL LOWER EXTREMITY VENOUS ULTRASOUND WITH DOPPLER: 10/24/18 HISTORY: Elevated D-dimer. Pain. COMPARISON: None. TECHNIQUE: Mendez scale, color flow, doppler imaging and spectral waveform analysis performed in the left and righ t lower extremity venous system. FINDINGS: There is mild edema involving both lower extremities. There are enlarged bilateral inguinal lymph nod es. Video News Editor enlarged left inguinal lymph node measures 2.6 x 0.7 cm and 3.0 x 0.8 cm in the lo ng axis. Enlarged right inguinal lymph node measures 3.6 x 0.7 cm in long axis. Bilaterally, there is compressibility, presence of flow and augmentation in the common femoral vein, femoral vein, and popliteal vein. There is flow in the bilateral greater saphenous vein, profunda vei n and posterior tibial vein. IMPRESSION: No evidence of thrombus in the left or right lower extremity deep venous system. POS: [facility]
[2018-10-24 15:50] LABS: Medtox Reader # READER 1
[2018-10-24 15:51] LABS: Amphetamine Detected (NotDetected); Barbiturates Screen Not Detected (NotDetected); Benzodiazepine Screen Not Detected (NotDetected); Cocaine Metabolite Screen Not Detected (NotDetected); Medtox Control Line Valid? VALID (VALID); Methadone Not Detected (NotDetected); Methamphetamine Detected (NotDetected); Opiate Screen Not Detected (NotDetected); Oxycodone Screen Not Detected (NotDetected); Phencyclidine (PCP) Not Detected (NotDetected); THC/Cannabinoid Screen Not Detected (NotDetected); Tricyclic Screen Not Detected (NotDetected)
[2018-10-24 17:31] LABS: Hemoglobin 10.9 g/dL (14.0-18.0); Mean Corpuscular HGB CONC 32.4 g/dL (32.0-36.0); Mean Corpuscular Hemoglobin 25.5 pg (27.0-31.0); Mean Corpuscular Volume 78.8 fL (78.0-98.0); Mean Platelet Volume 8.3 fL (7.4-10.4); Platelet Count 247 thou/uL (130-400); RBC Distribution Width 14.3 % (11.5-14.5); Red Blood Cell (RBC) Count 4.26 mill/uL (4.70-6.10); White Blood Cell (WBC) Count 4.7 thou/uL (4.8-10.8)
[2018-10-24 17:47] LABS: Anion Gap 13 mmol/L (10-20); BUN (Urea Nitrogen) 26 mg/dL (8.9-20.6); Calc. Creatinine Clearance 86 mL/min (70-130); Calcium 8.8 mg/dL (7.8-10.44); Carbon Dioxide 25 mmol/L (22-29); Chloride 102 mmol/L (98-107); Estimated GFR-MDRD 58; Glucose 98 mg/dL (70-105); Potassium 3.3 mmol/L (3.5-5.1); Sodium 137 mmol/L (136-145)
[2018-10-24 17:55] LABS: Band 1 % (5-11); Eosinophils 1 % (0-10); Hypochromia SLIGHT = 6-15 cells (100X) (0-5/hpf); Lymphocytes 29 % (21-51); MDiff Complete? YES; Monocytes 5 % (0-10); Neutrophil 62 % (42-75); Ovalocytes SLIGHT = 2-5 cells (100X) (0-1/hpf); PLT Morphology Comment Appears Adequate; Polychromasia SLIGHT = 2-3 cells (100X) (0-2/hpf); Reactive Lymphocytes 1 % (0-10); Target Cells SLIGHT = 2-5 cells (100X) (0-1/hpf)
[2018-10-24] MEDS: Magnesium Chloride 64 MG TAB PO SCH (21:08)
[2018-10-24] MEDS: Enoxaparin Sodium 40 MG/0.4 ML SYRINGE SC SCH (21:08)
--- NOTE | 2018-10-24 22:05 | CON ---
DATE OF CONSULTATION: HISTORY OF PRESENT ILLNESS: Ian Fong is a 37-year-old black male with presumably nonischemic cardiomyopathy secondary to drug abuse that was initially evaluated in October 2016 when he had an echo that revealed an ejection fraction of 10% to 15%. He was placed on medications and never did follow up with Dr. Mendez , who was seeing him at that time. He has had several other hospitalizations for congestive heart failure. After Dr. Mendez had moved his practice, he most recently was seen by Dr. Kaur in April 2018. This was when he ran out of all of his medications. He now is admitted with increased leg edema. He states he has not run out of any of his medications. He denies any chest discomfort or shortness of breath. PAST MEDICAL HISTORY: Presumed nonischemic cardiomyopathy, history of substance abuse, chronic kidney disease, hypertension, and history of anemia. OPERATIONS: Right foot surgery. MEDICATIONS: At home include; 1. Lisinopril 10 mg daily. 2. Furosemide 40 mg daily. 3. Carvedilol 12.5 mg b.i.d. ALLERGIES: NONE. SOCIAL HISTORY: He smokes 1 to 2 cigarettes per day. He denies any recent drug abuse. He does not drink. REVIEW OF SYSTEMS: 12-point review of systems otherwise unremarkable. PHYSICAL EXAMINATION: VITAL SIGNS: 111/75, pulse of 95. HEENT: PERRL. NECK: Supple. CHEST: Clear. CARDIAC: S1 and S2 normal without any S3, S4, or murmurs. ABDOMEN: Normal bowel sounds without tenderness. EXTREMITIES: Revealed 2+ pretibial edema to the knee. NEUROLOGIC: Grossly intact. LABORATORY DATA: EKG reveals sinus tachycardia with nonspecific T-wave changes. Chest x-ray reveals cardiomegaly. CT angiogram of the chest revealed no evidence of pulmonary embolism. There was marked cardiomegaly and ascites with mild hepatomegaly. Lower extremity venous ultrasound revealed no evidence of lower extremity deep venous thrombosis. Echocardiogram revealed 4-chamber cardiac enlargement, ejection fraction of 5%-10%, [id number] mitral regurgitation, jmhgvkgl-[id number] tricuspid regurgitation, and moderate pulmonic regurgitation. Urine drug screen is pending. Sodium 137, potassium 3.2, chloride 104, carbon dioxide 24, BUN 26, creatinine 1.46, glucose 154. Troponin I 0.069. Hemoglobin 11.2, hematocrit 35.7, white count 6,600, platelets 310,000. IMPRESSION: 1. Acute on chronic systolic heart failure. 2. Presumably nonischemic cardiomyopathy secondary to drug abuse. 3. History of methamphetamine abuse, urine drug screen pending. 4. The patient continues to smoke. 5. Hypertension. 6. History of anemia. PLAN: The patient will continue to be diuresed with b.i.d. Lasix 40 mg intravenously. Renal function will be monitored closely. Electrophysiology consultation will be obtained to consider possible ICD placement. Job ID: [id number] [facility]
[2018-10-25 05:43] LABS: Hemoglobin 10.6 g/dL (14.0-18.0); Mean Corpuscular HGB CONC 32.1 g/dL (32.0-36.0); Mean Corpuscular Hemoglobin 25.5 pg (27.0-31.0); Mean Corpuscular Volume 79.4 fL (78.0-98.0); Mean Platelet Volume 8.2 fL (7.4-10.4); Platelet Count 242 thou/uL (130-400); RBC Distribution Width 14.1 % (11.5-14.5); Red Blood Cell (RBC) Count 4.14 mill/uL (4.70-6.10); White Blood Cell (WBC) Count 4.8 thou/uL (4.8-10.8)
[2018-10-25 06:00] LABS: Anion Gap 13 mmol/L (10-20); BUN (Urea Nitrogen) 26 mg/dL (8.9-20.6); Calc. Creatinine Clearance 93 mL/min (70-130); Calcium 8.8 mg/dL (7.8-10.44); Carbon Dioxide 25 mmol/L (22-29); Chloride 104 mmol/L (98-107); Estimated GFR-MDRD 64; Glucose 112 mg/dL (70-105); Potassium 3.9 mmol/L (3.5-5.1); Sodium 138 mmol/L (136-145)
[2018-10-25] MEDS: Furosemide 40 MG/4 ML VIAL SLOW IVP SCH ×2 (06:06→18:38)
--- NOTE | 2018-10-25 08:35 | PDOC.FM ---
- Subjective Subjective: This morning patient states he is feeling well. Leg pain is improved, characterized as throbbing which has decreased.. Has been ambulating w/o difficulty. Denies SOB, chest pain, or palpitations. UDS + for amphetamines, patient states he is motivated to change his ways, states he understands gravity of his situation. - Objective Vital Signs & Weight: Vital Signs (12 hours) Temp Pulse Resp BP BP Pulse Ox 10/25/18 07:33 97.6 F 104 H 18 123/86 100 10/25/18 02:57 97.6 F 87 16 109/71 97 10/24/18 21:07 124/86 Weight Weight 96.207 kg I&O: 10/24/18 10/25/18 10/26/18 06:59 06:59 06:59 Intake Total 304 2500 Output Total 475 3775 Balance -171 -3036 Result Diagrams: 10/25/18 04:47 10/25/18 04:47 Phys Exam - Physical Examination Constitutional: NAD HEENT: PERRLA, moist MMs Neck: no nodes, full ROM Respiratory: no wheezing Cardiovascular: RRR, no significant murmur Gastrointestinal: soft, non-tender, no distention, positive bowel sounds Musculoskeletal: pulses present +2 pitting on the R, +3 on L to mid-calf Neurological: non-focal, moves all 4 limbs Psychiatric: normal affect, A&O x 3 Skin: no rash, cap refill <2 seconds Dx/Plan (1) Acute on chronic systolic (congestive) heart failure Code(s): I50.23 - ACUTE ON CHRONIC SYSTOLIC (CONGESTIVE) HEART FAILURE Status : Acute (2) Polysubstance abuse Code(s): F19.10 - OTHER PSYCHOACTIVE SUBSTANCE ABUSE, UNCOMPLICATED Status: Acute (3) Cardiomyopathy Code(s): I42.9 - CARDIOMYOPATHY, UNSPECIFIED Status: Chronic Qualifiers: Cardiomyopathy type: dilated Qualified Code(s): I42.0 - Dilated cardiomyopathy (4) CKD (chronic kidney disease) Code(s): N18.9 - CHRONIC KIDNEY DISEASE, UNSPECIFIED Status: Chronic - Plan Plan: # Chronic HFrEF in acute exacerbation - HFrEF EF 20-25% March 2017, 5-10% per echo 10/24/18 - Lasix 40 mg IV BID, carvedilol, lisinopril, spironolactone - Cardiology consulted, appreciate recs - AICD placement at 2pm today - trop .057-> .055-> .064 -> 0.44 , suspect demand ischemia - Strict I/Os, Daily weights, Fluid restrict to 1500 ml/day - (-)1800ml fluid balance yesterday - discharged in April 2018 at weight of 196lbs, admit weight 213lbs # Hypokalemia- resolved - K 3.9 this AM - replete prn # CKD2 # Meth abuse - 1 mo clean per patient, positive on UDS Tobacco - smokes 3 cig/day, rec'd cessation # HTN -Continue home carvedilol, lisinopril # Elevated Bili - Most likely 2/2 to hepatic congestion - has been elevated historically # Chronic anemia Dispo: AICD placement today, likley 2-3 days more inpt. Diet: HH, fluid restricted to 1500 ml/day Code status: full code Ppx: lovenox Addendum - Attending - Attending Attestation Date/Time: 10/25/18 3718 I personally evaluated the patient and discussed the management with Dr. Retana. I agree with the History, Examination, Assessment and Plan documented above with any addition or exceptions noted below. The patient's lower extremity edema is improving. He will have aicd placed today. Continue IV lasix.
[2018-10-25] MEDS ORDERED: Iopamidol 370 76% 50 ML VIAL FS ONE (10:54)
[2018-10-25] MEDS: Potassium Chloride 20 MEQ TAB PO SCH (11:13)
[2018-10-25] MEDS: Carvedilol 6.25 MG TAB PO SCH ×2 (11:13→22:43)
[2018-10-25] MEDS: Spironolactone 25 MG TAB PO SCH (11:13)
[2018-10-25] MEDS: Magnesium Chloride 64 MG TAB PO SCH ×2 (11:14→22:44)
[2018-10-25] MEDS: Lisinopril 10 MG TAB PO SCH (11:14)
[2018-10-25] MEDS ORDERED: CEFAZOLIN 2 GM/50 ML BAG ONE (16:42)
[2018-10-25] MEDS ORDERED: KETAMINE 100 MG/ML (5ML VIAL) ONE (17:24)
[2018-10-25] MEDS ORDERED: Phenylephrine HCL 10 MG/ML VIAL ONE (17:25)
[2018-10-25] MEDS ORDERED: Propofol 500 MG/50 ML VIAL ONE ×2 (17:25→18:20)
[2018-10-25] MEDS ORDERED: Acetaminophen/Codeine 30-300mg Tablet PO PRN ×2 (21:15)
[2018-10-25] MEDS ORDERED: diphenhydrAMINE 25 MG CAP PO PRN (21:40)
--- NOTE | 2018-10-25 22:14 | CON ---
DATE OF CONSULTATION: 10/25/2018 This is an electrophysiology consultation. REASON FOR CONSULTATION: Nonischemic cardiomyopathy. HISTORY OF PRESENT ILLNESS: Mr. Fong is a 37-year-old male, who was diagnosed with nonischemic cardiomyopathy secondary to drug abuse in October 2016. At that time, his ejection fraction was 10% to 15%. He was placed on medical management by Dr. Mendez, but never followed up with him. He has since been seen by Dr. Kaur in April 2018 when he began to run out of medications. He does report that he has been compliant with his medical management of his heart failure. Mr. Fong presented to the Emergency Room at [facility] with reports of leg edema and discomfort in his legs from swelling. He denies any shortness of breath, chest pain, pressure, syncope, near syncope, stroke, stroke-like symptoms. He does endorse that he has had some episodes of near passing out at rest at home, concerning for ventricular arrhythmias given his cardiomyopathy. He was admitted and placed in observation for diuresing and continued monitoring and evaluation of an ICD. PAST MEDICAL HISTORY: 1. Cardiomyopathy, presumably nonischemic and attributed to drug abuse. 2. Substance abuse. 3. Chronic kidney disease. 4. Hypertension. 5. Anemia. ALLERGIES: NONE. MEDICATIONS: Include; 1. Lisinopril 10 mg daily. 2. Furosemide 40 mg daily. 3. Carvedilol 12.5 mg b.i.d. SOCIAL HISTORY: He smokes 1 to 2 cigarettes a day. Denies recent drug use. Denies alcohol. REVIEW OF SYSTEMS: A 12-point review of systems was conducted and remarkable except that listed above in HPI. PHYSICAL EXAMINATION: VITAL SIGNS: Temperature 98.1, heart rate 103, blood pressure 118/78, respirations 18, oxygen is 100% on room air. GENERAL: The patient is alert and oriented. Speech is clear. Affect is appropriate. HEENT: Pupils are equal, round, reactive, and accommodating to light. NECK: Supple without jugular venous distention. LUNGS: Clear to auscultation bilaterally without wheezes, crackles, or rhonchi. CARDIAC: Heart rate is regularly regular without murmur, rub, or gallop. PMI is nondisplaced. EXTREMITIES: Warm and dry to touch with trace edema bilaterally to the knee. ABDOMEN: Soft, nontender without palpable masses. NEUROLOGIC: Grossly intact and nonfocal. Gait was not assessed. DATABASE: Telemetry and EKGs were all personally reviewed and reflect sinus rhythm with occasional nonsustained ventricular tachycardia. Laboratory; hematology was reviewed and unremarkable. Chemistry was reviewed, potassium 3.9, creatinine 1.5. Urinary tox screen is positive for amphetamines and methamphetamines. IMPRESSION: 1. Cardiomyopathy, presumably nonischemic and secondary to drug abuse. 2. History of drug abuse. Positive for amphetamine and methamphetamine in urine on admission. 3. Congestive heart failure, now better compensated and euvolemic. RECOMMENDATIONS: Mr. Fong has had his cardiomyopathy for over a year in spite of his heart failure management medically with ROSIE inhibitors, Lasix, and beta blockers. Echocardiogram during this hospitalization reveals his ejection fraction remains severely depressed at 5% to 10% now, which has been further depressed from 2 years ago when initially diagnosed when he was at least 10% to 15%. Most importantly, I highly recommend Mr. Fong to abstain from illicit drug use. We discussed ICD implant risks, benefits, and alternatives. Discussed the potential of having increased risk of having ICD shocks and discharges with continued drug abuse and also the need for followup and compliance with medications in clinic appointments for managing a defibrillator. The patient voices understanding. He wishes to receive a defibrillator. He understands the risks, benefits, and alternatives. We will keep him n.p.o. and ideally place the defibrillator later today. Thank you for allowing us to participate in the care of this patient. Job ID: [id number]
[2018-10-25] MEDS: Enoxaparin Sodium 40 MG/0.4 ML SYRINGE SC SCH (22:44)
[2018-10-26] MEDS: Cephalexin 250 MG CAP PO SCH ×5 (00:55→23:21)
[2018-10-26] MEDS: Furosemide 40 MG/4 ML VIAL SLOW IVP SCH ×2 (06:38→13:47)
[2018-10-26 07:57] LABS: Anion Gap 12 mmol/L (10-20); BUN (Urea Nitrogen) 28 mg/dL (8.9-20.6); Calc. Creatinine Clearance 86 mL/min (70-130); Calcium 8.7 mg/dL (7.8-10.44); Carbon Dioxide 25 mmol/L (22-29); Chloride 104 mmol/L (98-107); Estimated GFR-MDRD 56; Glucose 112 mg/dL (70-105); Potassium 3.8 mmol/L (3.5-5.1); Sodium 137 mmol/L (136-145)
--- NOTE | 2018-10-26 08:05 | RAD ---
CHEST 1 VIEW: Date: 10/26/18 HISTORY: Defibrillator placement. COMPARISON: 10/23/18. FINDINGS: Cardiac silhouette is magnified and enlarged. Pulmonary vasculature is unremarkable. Mediastinum is m idline. Single lead left subclavian defibrillator is now in place with distal lead overlying the righ t ventricle. No evidence of pneumothorax. IMPRESSION: Left subclavian cardiac defibrillator is in good radiographic position without evidence of complicati on. POS: [facility]
[2018-10-26] MEDS: Spironolactone 25 MG TAB PO SCH (08:20)
[2018-10-26] MEDS: Potassium Chloride 20 MEQ TAB PO SCH (08:21)
[2018-10-26] MEDS: Lisinopril 10 MG TAB PO SCH (08:21)
[2018-10-26] MEDS: Carvedilol 6.25 MG TAB PO SCH ×2 (08:21→20:58)
--- NOTE | 2018-10-26 08:57 | PDOC.FM ---
- Subjective Subjective: This morning the patient states he is feeling well overall. Was able to walk the hallways with PT yesterday. Had defibrillator placed last night with EP. The patient denies CP, sob, or cough. He states his leg pain has now resolved. Tolerating PO w/o difficulty. Denies any pain at this time. - Objective Vital Signs & Weight: Vital Signs (12 hours) Temp Pulse Resp BP BP BP Pulse Ox 10/26/18 08:28 97.9 F 99 16 120/96 H 100 10/26/18 03:53 98.6 F 99 18 124/65 98 10/25/18 22:43 124/86 Weight Weight 100.017 kg I&O: 10/25/18 10/26/18 10/27/18 06:59 06:59 06:59 Intake Total 2500 500 Output Total 3775 2100 Balance -1275 -1600 Result Diagrams: 10/25/18 04:47 10/26/18 07:22 Phys Exam - Physical Examination Constitutional: NAD HEENT: PERRLA, moist MMs Respiratory: no wheezing, clear to auscultation bilateral Cardiovascular: RRR, no significant murmur Gastrointestinal: soft, non-tender, no distention, positive bowel sounds +2 pitting edema to mid-calf bilterally, impressive improvement since admit Neurological: non-focal, moves all 4 limbs Psychiatric: normal affect, A&O x 3 Skin: no rash, cap refill <2 seconds Dx/Plan (1) Acute on chronic systolic (congestive) heart failure Code(s): I50.23 - ACUTE ON CHRONIC SYSTOLIC (CONGESTIVE) HEART FAILURE Status : Acute (2) Polysubstance abuse Code(s): F19.10 - OTHER PSYCHOACTIVE SUBSTANCE ABUSE, UNCOMPLICATED Status: Acute (3) Cardiomyopathy Code(s): I42.9 - CARDIOMYOPATHY, UNSPECIFIED Status: Chronic Qualifiers: Cardiomyopathy type: dilated Qualified Code(s): I42.0 - Dilated cardiomyopathy (4) CKD (chronic kidney disease) Code(s): N18.9 - CHRONIC KIDNEY DISEASE, UNSPECIFIED Status: Chronic - Plan Plan: # Chronic HFrEF in acute exacerbation - HFrEF EF 20-25% March 2017, 5-10% per echo 10/24/18 - Lasix 40 mg IV BID, carvedilol, lisinopril, spironolactone - Cardiology, EP consulted, appreciate recs - AICD placement 10/25/18 PM - trop .057-> .055-> .064 -> 0.44 , suspect demand ischemia - Strict I/Os, Daily weights, Fluid restrict to 1500 ml/day - (-)1600ml fluid balance yesterday - discharged in April 2018 at weight of 196lbs, admit weight 213lbs - moved to tele last night after defibrillator placement, todays weight appears inaccurate # MAHESH - Cr 1.68, baseline1.1 - monitor, continue lasix # Hypokalemia- resolved - replete prn # CKD2 # Meth abuse - 1 mo clean per patient, positive on UDS Tobacco - smokes 3 cig/day, rec'd cessation # HTN -Continue home carvedilol, lisinopril # Elevated Bili - Most likely 2/2 to hepatic congestion - has been elevated historically # Chronic anemia Dispo: AICD placement 10/25/18 PM, plan to d/c tomorrow pending cards/ep recs Diet: HH, fluid restricted to 1500 ml/day Code status: full code Ppx: lovenox Addendum - Attending - Attending Attestation Date/Time: 10/26/18 2932 I personally evaluated the patient and discussed the management with Dr. Retana. I agree with the History, Examination, Assessment and Plan documented above with any addition or exceptions noted below. Pt tolerated AICD placement. LE edema is improving. Will continue IV lasix today and likely be able to d/c tomorrow.
[2018-10-26] MEDS: Magnesium Chloride 64 MG TAB PO SCH ×2 (10:10→20:58)
--- NOTE | 2018-10-26 11:16 | PDOC.CTH ---
Cardiology Progress Note - Subjective EP PROGRESS NOTE: 10/26/18 Seen as follow up for cardiomyopathy and ICD placement on 10/25/18. Doing well today. No pain at implant site. No cardiac concerns or complaints. Feels ready to go home. - Objective Vital Signs Temp Pulse Resp BP BP Pulse Ox 10/26/18 08:28 97.9 F 99 16 120/96 H 100 10/26/18 03:53 98.6 F 99 18 124/65 98 Weight 220 lb 8 oz 10/25/18 10/26/18 10/27/18 06:59 06:59 06:59 Intake Total 2500 500 Output Total 3775 2100 Balance -1275 -1600 - Physical Examination General/Neuro: alert & oriented x3, NAD Neck: carotid US brisk, no JVD present Lungs: CTA, unlabored respirations Heart: PMI normal, RRR Abdomen: NT/ND, soft - Telemetry Telemetry Rhythm: SR with PVC - Labs Result Diagrams: 10/25/18 04:47 10/26/18 07:22 Troponin/CKMB CK-MB (CK-2) 2.4 ng/mL (0-6.6) 10/23/18 23:20 Troponin I 0.046 ng/mL (< 0.028) H 10/24/18 07:50 - Assessment/Plan 1. Cardiomyopathy - EF 5-10% - need for medical compliance and abstain from illicit drug use to prevent ICD shocks 2. Congestive heart failure - fluid restriction - lasix - compensated now OK for DC by EP. Keflex 500mg PO Q6hr x 7 days ( rx in chart).Wound and device check in 10-14 days
--- NOTE | 2018-10-26 15:14 | DIS ---
this note is filed in error, was to be entered as progress note for transition of care to oncoming team CHIQUIS
--- NOTE | 2018-10-26 15:22 | PDOC.CTH ---
Cardiology Progress Note - Subjective The pt seen and examined. No overnight events. No cardiac complaints. - Objective Vital Signs Temp Pulse Resp BP BP Pulse Ox 10/26/18 12:55 98.8 F 98 16 98/71 98 10/26/18 08:28 97.9 F 99 16 120/96 H 100 10/26/18 03:53 98.6 F 99 18 124/65 98 Weight 220 lb 8 oz 10/25/18 10/26/18 10/27/18 06:59 06:59 06:59 Intake Total 2500 500 Output Total 3775 2100 Balance -1275 -1600 - Physical Examination General/Neuro: alert & oriented x3 Neck: no JVD present Lungs: CTA Heart: RRR Abdomen: soft Extremities: other: (2+ pitting BLE edema;) - Telemetry Telemetry Rhythm: SR - Labs Result Diagrams: 10/25/18 04:47 10/26/18 07:22 Troponin/CKMB CK-MB (CK-2) 2.4 ng/mL (0-6.6) 10/23/18 23:20 Troponin I 0.046 ng/mL (< 0.028) H 10/24/18 07:50 - Assessment/Plan 1. Dilated CMY with s/p AICD placement on 10/25/2018 - The site is DEVYN, no hematoma, or drainage; 22. Acute on chronic systolic HF - Stable with RA. On Bblocker, ROSIE, Aldactone , and Lasix 40mg IV BID, which changed to PO BID. Encourage to raise his BLE and wear compression stockings. 3. CKD - no changed 4. Polysubstance abuse MAR reviewed * From Cardiac standpoint, the pt is stable to d/c home. The pt will f/u with Dr Paige's office within 7-10 days. Pt. seen and eval. by me. I agree with the A/P by the STATE DIRECTOR. Chest clear. AICD site clean and dry. RRR. Prob. can d/c tomorrow. Review of Systems - Review of Systems Constitutional: reports: no symptoms reported EENTM: reports: no symptoms reported Respiratory: reports: no symptoms reported Cardiac (ROS): reports: no symptoms reported ABD/GI: reports: no symptoms reported : reports: no symptoms reported
--- NOTE | 2018-10-26 18:18 | PDOC.EVN ---
Event Note - Event Note Event Note: This is a transition of care note for oncoming team DATE OF ADMISSION: 10/24/2018 DATE OF DISCHARGE: ANTICIPATED DISCHARGE DATE: 10/27/2018. ADMITTING AND ATTENDING PHYSICIAN: Cornel Rees MD CONSULTS: Cardiology, Timothy Paige MD; Electrophysiology, Lukasz Alfaro MD PROCEDURE: Automatic implantable cardioverter-defibrillator placement on 2018. PRIMARY DIAGNOSIS: Acute on chronic congestive heart failure exacerbation. SECONDARY DIAGNOSES: Acute kidney injury, hypokalemia, chronic kidney disease 2 , methamphetamine abuse, tobacco abuse, hypertension, chronic anemia. ANTICIPATED DISCHARGE MEDICATIONS: 1. Spironolactone 25 mg daily. 2. Carvedilol 12.5 mg b.i.d. 3. Keflex 500 mg q.i.d. for 1 week (prescription in chart). 4. Lisinopril 10 mg daily. 5. Lasix 40 mg p.o. b.i.d. for 2 weeks. DISCONTINUED MEDICATIONS: None. HISTORY OF PRESENT ILLNESS AND HOSPITAL COURSE: This is a 37-year-old male, who presented to the ED as a transfer from [place] with bilateral lower extremity swelling and pain that he said had been getting worse about 4 days. The patient had crackles in lungs at [place] and CXR showed minimal pulmonary congestion. BNP was found to be 2200 with indeterminate troponin. The patient stated that he had not been following his diet appropriately and had increased intake during the holidays. He said that he had been mostly compliant with his medications, but has a history of noncompliance. The patient denied chest pain or palpitations at time of admission. Upon admission, the patient was found to have 3+ pitting edema to the mid calf bilaterally. The patient was discharged in April 2018 with weight of 196 pounds , he was found to be 213 pounds at the time of admission. Echocardiogram showed an EF of 5% to 10%. Cardiology was consulted and recommended consultation of electrophysiology for AICD placement. The patient had LifeVest and AICD recommended during multiple past admissions, but never followed up to get them done. AICD was placed on 10/25/2018. We will continue to diurese the patient, and anticipate he will be ready for discharge on 10/27/2018. DISPOSITION: Stable. ANTICIPATED FOLLOWUP: Outpatient cardiac rehab in [place], weekly, 2 to 3 weeks; Dr. Alfaro in 2 to 3 weeks; primary care provider in 1 week. The patient is unsure of primary care provider. Gave contact information for [facility].
[2018-10-27 05:34] LABS: Anion Gap 12 mmol/L (10-20); BUN (Urea Nitrogen) 32 mg/dL (8.9-20.6); Calc. Creatinine Clearance 84 mL/min (70-130); Calcium 8.7 mg/dL (7.8-10.44); Carbon Dioxide 24 mmol/L (22-29); Chloride 106 mmol/L (98-107); Estimated GFR-MDRD 55; Glucose 128 mg/dL (70-105); Potassium 3.8 mmol/L (3.5-5.1); Sodium 138 mmol/L (136-145)
[2018-10-27] MEDS: Cephalexin 250 MG CAP PO SCH ×2 (05:58→11:49)
--- NOTE | 2018-10-27 06:06 | PDOC.FM ---
- Subjective Subjective: 37 yo male seen at bedside this AM. Patient states he feels well overall and is ready to go. He states that he did urinate a lot yesterday. Patient states that he has had no chest pain, palpitations, sob, n/v/d, fevers, chills, or other complaints. He states that he is agreeable to stay away from illegal drugs due to his health. He states that he will follow all outpatient treatment plans because his health is important to him. No other complaints today. - Objective Vital Signs & Weight: Vital Signs (12 hours) Temp Pulse Resp BP BP Pulse Ox 10/27/18 04:00 97.7 F 92 14 107/67 99 10/26/18 19:30 97.8 F 88 16 112/63 99 Weight Weight 98.203 kg I&O: 10/25/18 10/26/18 10/27/18 06:59 06:59 06:59 Intake Total 2500 500 1367 Output Total 3777 2100 6550 [facility]7885 -1600 -7489 Result Diagrams: 10/25/18 04:47 10/27/18 04:48 Phys Exam - Physical Examination Constitutional: NAD HEENT: moist MMs Respiratory: no wheezing, clear to auscultation bilateral Cardiovascular: RRR, no significant murmur Gastrointestinal: soft, non-tender, no distention, positive bowel sounds Musculoskeletal: edema present 2+ bilaterally Neurological: non-focal, normal sensation, moves all 4 limbs Psychiatric: normal affect, A&O x 3 Skin: no rash Dx/Plan (1) Acute on chronic systolic (congestive) heart failure Code(s): I50.23 - ACUTE ON CHRONIC SYSTOLIC (CONGESTIVE) HEART FAILURE Status : Acute (2) MAHESH (acute kidney injury) Code(s): N17.9 - ACUTE KIDNEY FAILURE, UNSPECIFIED Status: Acute (3) CKD (chronic kidney disease) Code(s): N18.9 - CHRONIC KIDNEY DISEASE, UNSPECIFIED Status: Chronic (4) Chronic anemia Code(s): D64.9 - ANEMIA, UNSPECIFIED Status: Chronic (5) Polysubstance abuse Code(s): F19.10 - OTHER PSYCHOACTIVE SUBSTANCE ABUSE, UNCOMPLICATED Status: Acute (6) Cardiomyopathy Code(s): I42.9 - CARDIOMYOPATHY, UNSPECIFIED Status: Chronic Qualifiers: Cardiomyopathy type: dilated Qualified Code(s): I42.0 - Dilated cardiomyopathy (7) HTN (hypertension) Code(s): I10 - ESSENTIAL (PRIMARY) HYPERTENSION Status: Chronic Qualifiers: - Plan Plan: # Chronic HFrEF in acute exacerbation - HFrEF EF 20-25% March 2017, 5-10% per echo 10/24/18 - Lasix 40 mg IV BID, carvedilol, lisinopril, spironolactone - Cardiology, EP consulted, appreciate recs - AICD placement 10/25/18 PM - trop .057-> .055-> .064 -> 0.44 , suspect demand ischemia - Strict I/Os, Daily weights, Fluid restrict to 1500 ml/day - (-)4700 ml fluid balance yesterday with total 5850 ml output # MAHESH vs CKD2 - Cr 1.71, suspected baseline 1.1 - Cr 1.68 yesterday and had 5850 ml output - MAHESH vs CKD - Will need outpatient follow up # Hypokalemia- resolved - replete prn # Meth abuse - 1 mo clean per patient, positive on UDS - Recommend cessation Tobacco - smokes 3 cig/day - recommend cessation # HTN -Continue home carvedilol, lisinopril # Elevated Bili - Most likely 2/2 to hepatic congestion - has been elevated historically # Chronic anemia - Not currently symptomatic - Recommend outpatient follow up Disposition: Stable, will plan for discharge today with close outpatient follow up with PCP. Addendum - Attending - Attending Attestation Date/Time: 10/27/18 1016 I personally evaluated the patient and discussed the management with Dr. Flor. I agree with the History, Examination, Assessment and Plan documented above with any addition or exceptions noted below. Patient reports feeling well. Diuresed very well overnight and only minimal change in creatinine. Counselled on fluid restriction and need to avoid illicit substances as well as take all medications. Has plans to follow up with outpt CHF clinic. Stable for discharge today.
[2018-10-27 08:33] VITALS: BP 120/79; TEMP 97.5
[2018-10-27] MEDS: Lisinopril 10 MG TAB PO SCH (08:56)
[2018-10-27] MEDS: Spironolactone 25 MG TAB PO SCH (08:57)
[2018-10-27] MEDS: Carvedilol 6.25 MG TAB PO SCH (08:57)
[2018-10-27] MEDS: Potassium Chloride 20 MEQ TAB PO SCH (08:57)
[2018-10-27] MEDS ORDERED: Furosemide 20 MG TAB PO SCH (09:00)
[2018-10-27] MEDS: Magnesium Chloride 64 MG TAB PO SCH (10:44)
--- NOTE | 2018-10-28 03:58 | DIS ---
DATE OF ADMISSION: 10/24/2018 DATE OF DISCHARGE: 10/27/2018 RESIDENT: Dr. Flor. ADMITTING ATTENDING: Dr. Rees. DISCHARGE ATTENDING: Dr. Prado. CONSULTATIONS: 1. [facility]. 2. Case Management. 3. Cardiology, Dr. Paige. 4. Cardiac Rehab. 5. Dietitian. 6. Heart Failure Disease Management. 7. [facility] program. 8. Heart Failure Clinic. PROCEDURES: 1. On 10/23/2018, the patient underwent a chest x-ray that showed cardiomegaly without other significant acute process stable from early 10/23/2018 study. On 10/24/2018, the patient underwent a cath. 2. On 10/24/2018, the patient underwent a venogram that showed no evidence of thrombus in left or right lower extremity deep venous system. 3. On 10/24/2018, the patient underwent an echocardiogram that showed left ventricle size is dramatically decreased. Overall left ventricle function is severely depressed. Ejection fraction is visually estimated at 5% to 10%, moderately enlarged right ventricular cavity, left atrium is moderately dilated, moderately enlarged right atrium size, pefvkgrz-pd-svjthj mitral regurgitations present. Wltpkfel-fd-iotgyi tricuspid regurgitation and moderate pulmonic regurgitations present. 4. On 10/25/2018, the patient underwent a defibrillator placement. 5. On 10/26/2018, the patient had a chest x-ray that showed left subclavian cardioverter defibrillator is in good radiographic position without evidence of complication. PRIMARY DIAGNOSES: 1. Acute on chronic systolic congestive heart failure. 2. Chronic kidney disease versus acute kidney injury. 3. Chronic anemia. 4. Polysubstance abuse. 5. Dilated cardiomyopathy. 6. Hypertension. DISCHARGE MEDICATIONS: 1. Coreg 12.5 mg p.o. b.i.d. 2. Furosemide 40 mg p.o. daily. 3. Lisinopril 10 mg p.o. daily. 4. Keflex 500 mg p.o. q.6h. 5. Spironolactone 25 mg p.o. q.a.m. with meals. DISCONTINUED MEDICATIONS: None. HISTORY OF PRESENT ILLNESS AND HOSPITAL COURSE: Please refer to event note for transition of care on 10/26/[address] John Retana regarding hospital stay prior to 10/27/2018. This is a 37-year-old male with history of heart failure with reduced ejection fraction, presented as a transfer from [place] with bilateral lower extremity swelling and pain for the last 4 days. In [place], he had crackles in bilateral lower lobes. Chest x-ray showed minimal pulmonary congestion. BNP was elevated at 2200. Troponin was indeterminant and was given 40 mg of IV Lasix. The patient stated that he had not been following his diet properly and increased his salt intake over the holidays. He also not been taking his blood pressure medications and has history of noncompliance. During this hospitalization, for information prior to 10/27/2018, please refer to the above mentioned transition of care note by Dr. John Retana on 10/26/2018. The patient did have a output of greater than 6 L of fluid from 10/26/2018 to 2018 with normotensive vital signs and he was afebrile. The patient did have a slight bump in his creatinine, previous baseline from prior history seemed to be around 1.3 it did bump up to 1.55 on admission and on discharge, it was 1.71 and it was felt that due to his high output and use of Lasix, we expected to have a small bump in his creatinine even thought this was a negligible amount, he needs to have outpatient followup to ensure no further complications from kidney disease. The patient otherwise has been setup extensively for outpatient followup to the Heart Failure Clinic, to Cardiac Rehab through his primary care physician, CRIS Martinez, Dr. Alfaro with Electrophysiology and Dr. Kaur with Cardiology. The patient otherwise had no other complications during this hospitalization and was discharged in appropriate condition. DISPOSITION: Stable. DISCHARGE INSTRUCTIONS: 1. Location: He will be discharged to home under the care of himself. 2. Diet: Will be heart-healthy diet with salt restrictions as well as fluid restriction to 1500 mL per day. 3. Activity: Will be as tolerated with cardiopulmonary limitations due to his depressed cardiac function. 4. Followup: As stated above with Cardiac Rehab, [facility], primary care provider, Abimbola San, Dr. Lukasz Alfaro with Electrophysiology, and Dr. Ephraim Kaur with Cardiology all in the coming days and weeks. We wish this patient best of luck and hope he has no further complications of his disease process. Job ID: [id number] [facility]
== END 2018-10-27 12:52 | disposition home or self-care (01) | DRG 226 ==
LOC: ERS 21:32 → 2SW 23:39 → OBSVTOIN 10-24 08:17 → 2NO 10-25 13:49
PROVIDERS: ADMIT Family Medicine; ATTEND Family Medicine
PROC: 0JH608Z Insertion of Defibrillator Generator into Chest Subcutaneous Tissue and Fascia, Open Approach (ICD-10-PCS; principal; 2018-10-25)
PROC: 02HK3KZ Insertion of Defibrillator Lead into Right Ventricle, Percutaneous Approach (ICD-10-PCS; 2018-10-25)
DX: I13.0 Hypertensive heart and chronic kidney disease with heart failure and stage 1 through stage 4 chronic kidney disease, or unspecified chronic kidney disease (principal); I50.23 Acute on chronic systolic (congestive) heart failure; N18.2 Chronic kidney disease, stage 2 (mild); I42.0 Dilated cardiomyopathy; F17.210 Nicotine dependence, cigarettes, uncomplicated; D64.9 Anemia, unspecified; Z83.3 Family history of diabetes mellitus; E87.6 Hypokalemia; E80.6 Other disorders of bilirubin metabolism; F19.10 Other psychoactive substance abuse, uncomplicated
CPT/HCPCS: 33249; 36005; 36415; 71045; 75820; 80048; 80306; 82248; 82553; 83735; 84484; 85025; 85027; 90471; 90686; 93005; 93306; 93798; 93970; C1722; C1777; G0008; J1650; J1940; J2370; J2704; J3490

== ENCOUNTER 2019-07-28 02:47 | Observation (INO) | payer OTHER, SELFPAY ==
[2019-07-28 03:31] LABS: #Eosinphils 0.2 thou/uL (0.0-0.7); #Lymphocytes 0.9 thou/uL (1.20-3.40); #Monocytes 0.7 thou/uL (0.11-0.59); #Neutrophils 3.9 thou/uL (1.40-6.50); %Basophils 0.1 % (0.0-1.0); %Eosinophils 4.2 % (0.0-10.0); %Lymphocytes 15.2 % (21.0-51.0); %Monocytes 11.6 % (0.0-10.0); %Neutrophils 68.8 % (42.0-75.0); Hemoglobin 12.9 g/dL (14.0-18.0); Mean Corpuscular HGB CONC 33.1 g/dL (32.0-36.0); Mean Corpuscular Hemoglobin 28.2 pg (27.0-31.0); Mean Corpuscular Volume 84.9 fL (78.0-98.0); Mean Platelet Volume 9.3 fL (7.4-10.4); Platelet Count 203 thou/uL (130-400); RBC Distribution Width 15.3 % (11.5-14.5); Red Blood Cell (RBC) Count 4.58 mill/uL (4.70-6.10); White Blood Cell (WBC) Count 5.7 thou/uL (4.8-10.8)
[2019-07-28 03:46] LABS: ALT (SGPT) 24 U/L (8-55); AST (SGOT) 26 U/L (5-34); Alkaline Phosphatase 80 U/L (40-110); Anion Gap 12 mmol/L (10-20); BUN (Urea Nitrogen) 16 mg/dL (8.9-20.6); Bilirubin, Total 1.1 mg/dL (0.2-1.2); Calc. Creatinine Clearance 0 mL/min (70-130); Calcium 8.5 mg/dL (7.8-10.44); Carbon Dioxide 22 mmol/L (22-29); Chloride 111 mmol/L (98-107); Estimated GFR-MDRD Greater than 90; Globulin 2.9 g/dL (2.4-3.5); Glucose 99 mg/dL (70-105); Potassium 4.9 mmol/L (3.5-5.1); Protein, Total 5.9 g/dL (6.0-8.3); Sodium 140 mmol/L (136-145)
[2019-07-28] MEDS ORDERED: Metoprolol Tartrate 5 MG/5 ML VIAL ONE (04:16)
[2019-07-28] MEDS ORDERED: Lisinopril 10 MG TAB ONE (04:52)
[2019-07-28] MEDS ORDERED: Furosemide 40 MG TAB ONE (04:52)
[2019-07-28] MEDS ORDERED: Carvedilol 6.25 MG TAB PO SCH (05:00)
[2019-07-28 05:55] VITALS: BMI 27.3
[2019-07-28] MEDS ORDERED: Ondansetron ODT 4 MG TAB PO PRN (05:55)
[2019-07-28] MEDS ORDERED: Ondansetron PF 4 MG/2 ML Vial IVP PRN (05:55)
[2019-07-28] MEDS ORDERED: Acetaminophen 325 MG TAB PO PRN (05:55)
[2019-07-28] MEDS ORDERED: Acetaminophen 650 MG Suppository PR PRN (05:55)
[2019-07-28 06:52] LABS: Troponin I 0.022 ng/mL (< 0.028)
[2019-07-28] MEDS ORDERED: Nitroglycerin 0.4 MG TAB (25 Tab Bottle) SL PRN (07:08)
[2019-07-28] MEDS ORDERED: hydrALAZINE 20 MG/ML VIAL SLOW IVP PRN (07:10)
--- NOTE | 2019-07-28 07:55 | HP ---
CODE STATUS: Full code time. TIME OF EVALUATION: 5:20 a.m. CHIEF COMPLAINT: Chest pain. HISTORY OF PRESENT ILLNESS: The patient is a 38-year-old male patient with past medical history of cardiomyopathy secondary to drug abuse, also hypertension, CHF. The patient came to the hospital from retirement after having chest pain that started around 2200 hours, has been on and off, when severe, 10/10. By the time of my examination, the pain was 5/10. The patient has some improvement with nitroglycerin sublingual. No clear triggers, no alleviating factors. Only alleviates with medications given in the ER. REVIEW OF SYSTEMS: CONSTITUTIONAL: No fever, chills, no generalized weakness. RESPIRATORY: No cough, sputum production, shortness of breath. CARDIOVASCULAR: Chest pain as discussed in HPI. No palpitation. GASTROINTESTINAL: The patient had nausea. No vomiting, diarrhea, or abdominal pain. 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 GENITOURINARY: No burning with urination. EXTREMITIES: Leg swelling 1+ pitting edema. All other systems were reviewed and negative except for the findings mentioned above. PAST MEDICAL HISTORY: Positive for the findings mentioned in the HPI. Also positive for hyperlipidemia. SURGICAL HISTORY: I and D, right foot surgery. PSYCHIATRIC HISTORY: No previous psych history. SOCIAL HISTORY: Former drug user, smokes cigarettes on a daily basis. KNOWN ALLERGIES: No known drug allergies. REPORTED MEDICATIONS: 1. Carvedilol. 2. Lisinopril. 3. Furosemide. PHYSICAL EXAMINATION: VITAL SIGNS: On presentation, blood pressure 124/103 with heart rate 131, respiratory rate was 18, temperature 98.1. Pain was 6/10. By the time of my examination, diastolic blood pressure was 113. GENERAL APPEARANCE: The patient is alert, oriented, in no acute distress. HEENT: Eyes normal conjunctiva, moist oral mucosa, anicteric. No JVD. RESPIRATORY: Bilateral air entry. No rales. No wheezes. Symmetric expansion. CARDIOVASCULAR: Normal rate, regular rhythm. No murmurs. No edema. ABDOMEN: Soft, normal bowel sounds. MUSCULOSKELETAL: Baseline range of motion and strength. SKIN: Warm, intact. No pallor. No rash. No redness. Capillary refill seems to be intact. NEUROLOGIC: No evidence of any new focal weakness. Cranial nerves seems to be intact. PSYCHIATRIC: Patient is in good mood. No anxiety. Optimal judgment. DIAGNOSTIC STUDIES: The EKG was reviewed and discussed with the ER physician. The patient has sinus tachycardia at the rate of 112, left ventricular hypertrophy with lateral ischemia, QRS duration 94, and QT corrected 477. Chest x-ray shows massive cardiomegaly with pulmonary vascular congestion. LABORATORY DATA: Reviewed. The patient has white count 5.7, hemoglobin 12.9, MCV 84.9, platelet count 203. Chemistry: Sodium 140, potassium 4.9, chloride 111, carbon dioxide 22, anion gap 12, BUN 16, creatinine 0.86, GFR greater than 90, glucose 99, calcium 8.5, total bilirubin 1.1. LFTs were negative. Troponin was negative x2. Beta-natriuretic peptide was 1041. Serum total protein 5.9, albumin 3.0, globulin 2.9, albumin to globulin ratio is 1.2. ASSESSMENT AND PLAN: The patient will be placed in the hospital with the following medical problems. 1. Chest pain, rule out acute coronary syndrome. The patient has a history of underlying cardiomyopathy due to drug abuse in the past and also has a history of congestive heart failure. We will trend troponins. We will do echo in the morning. Unclear if the chest pain is secondary to acute exacerbation of congestive heart failure. The patient has followed with Dr. Paige in the past, could be consulted if any further testing is being considered given the high risk of the patient. We will treat with nitroglycerin and we will treat congestive heart failure. 2. Acute congestive heart failure exacerbation. The patient has currently vascular congestion on the chest x-ray, could have been triggered by high blood pressure, control blood pressure. We will diuresis, nitroglycerin paste, reconcile home medications. 3. Uncontrolled hypertension. During my examination, patient has blood pressure in the 130s over 113. Home medication has been reconciled. First dose in the morning has been given. P.r.n. medications for optimal control have been ordered. 4. Hyperlipidemia. Low-cholesterol diet is advised. Reconcile home medications. 5. Deep venous thrombosis prophylaxis. Job ID: [id number]
[2019-07-28] MEDS ORDERED: Aspirin 325 MG TAB PO SCH (09:00)
[2019-07-28 10:13] LABS: Troponin I 0.016 ng/mL (< 0.028)
--- NOTE | 2019-07-28 10:16 | PDOC.HOSPP ---
- Subjective Encounter Date: 07/28/19 Encounter Time: 10:14 Subjective: Mr. Fong was seen in follow-up of chest pain and dyspnea. He rates his pain about a 6/10 now, and it is better when he leans forward. He admits he has been out of all his medications for the past 3-4 weeks. He says he was not able to get it, since he has been in the [facility] correction. He denies any dyspnea at rest. - Objective Vital Signs & Weight: Vital Signs (12 hours) Temp Pulse Resp BP BP Pulse Ox 07/28/19 07:50 97.2 F L 105 H 16 101/69 96 07/28/19 06:01 130/104 H 07/28/19 05:35 97.5 F L 101 H 18 130/104 H 94 L Weight Admit Weight 202 lb Weight 202 lb Result Diagrams: 07/28/19 03:13 07/28/19 03:13 - Exam Eye: PERRL, anicteric sclera Heart: RRR, murmur present, II/IV (systolic at the LLSB, + S3 gallop, and possible friction rub) Respiratory: CTAB, no wheezes, no rales, no ronchi, normal chest expansion, no tachypnea, normal percussion Gastrointestinal: soft, non-tender, non-distended, normal bowel sounds, no palpable masses, no hepatomegaly, no splenomegaly, no bruit, no guarding, no rigidity Extremities: no cyanosis, no clubbing, no edema Psychiatric: normal affect, normal behavior, A&O x 3 Hosp A/P (1) Chest pain Code(s): R07.9 - CHEST PAIN, UNSPECIFIED Status: Acute (2) Acute on chronic systolic (congestive) heart failure Code(s): I50.23 - ACUTE ON CHRONIC SYSTOLIC (CONGESTIVE) HEART FAILURE Status : Acute (3) HTN (hypertension) Code(s): I10 - ESSENTIAL (PRIMARY) HYPERTENSION Status: Chronic Qualifiers: - Plan * Chest pain- likely as a result of lack of medications, and also due to acute on chronic systolic heart failure * Will re-start his home medications, and agree with Nitrates. * IV lasix to aid in diureses * possible cardiac friction rub- will await Echo * HTN- blood pressure is a bit labile- will monitor * Await Echo and Cardiology evaluation
[2019-07-28] MEDS: Carvedilol 6.25 MG TAB PO SCH ×2 (10:29→21:04)
[2019-07-28] MEDS: Enoxaparin Sodium 40 MG/0.4 ML SYRINGE SC SCH (10:30)
[2019-07-28] MEDS: Furosemide 40 MG/4 ML VIAL SLOW IVP SCH (10:30)
--- NOTE | 2019-07-28 11:35 | RAD ---
PORTABLE AP CHEST: Date: 07/28/19 HISTORY: Chest pain. COMPARISON: 10/26/18. FINDINGS: Single lead left subclavian AICD device remains in place. Cardiac silhouette remains enlarged. Pulmon mellissa vasculature is within normal limits. There is suboptimal evaluation of the retrocardiac region at the left lung base, but the lungs are otherwise clear. There has been no significant interval change compared to the prior exam. IMPRESSION: Stable chest with evidence of cardiomegaly. No acute cardiopulmonary process is identified. POS: OFF
--- NOTE | 2019-07-28 14:28 | CON ---
DATE OF CONSULTATION: REASON FOR CONSULTATION: Chest pain. Dr. 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 HISTORY OF PRESENT ILLNESS: Mr. Fong is a 38-year-old gentleman with past history of nonischemic cardiomyopathy. The patient is currently incarcerated. He states he developed chest pain last evening. It was noted for several hours during night. No neck or jaw radiation. No associated shortness of breath or associated symptoms. Last echo dated 10/24/2018, with LVEF 5% to 10%. He did undergo ICD placement in October 2018. He has a previous history of illicit drug use. PAST MEDICAL HISTORY: Nonischemic cardiomyopathy, substance abuse, kidney disease, hypertension, and previous anemia. MEDICATIONS: 1. Lisinopril. 2. Lasix. 3. Carvedilol. REVIEW OF SYMPTOMS: Ten-point review of systems is reviewed and as above, otherwise negative. PHYSICAL EXAMINATION: GENERAL: Patient is a pleasant gentleman, who is in no acute distress. The patient appears their stated age. VITAL SIGNS: Blood pressure 116/78, pulse 92, temperature 97.4. NEUROLOGIC: The patient is alert and oriented x3 with no focal neurologic deficits. HEENT: Sclerae without icterus. Mouth has moist mucous membranes with normal pallor. NECK: No JVD. Carotid upstroke brisk. No bruits bilaterally. LUNGS: Clear to auscultation with unlabored respirations. BACK: No scoliosis or kyphosis. CARDIAC: Regular rate and rhythm with normal S1 and S2. No S3 or S4 noted. No significant rubs, murmurs, thrills, or gallops noted throughout the precordium. PMI is not displaced. There is no parasternal heave. ABDOMEN: Soft, nontender, nondistended. No peritoneal signs present. No hepatosplenomegaly. No abnormal striae. EXTREMITIES: 2+ femoral and 2+ dorsalis pedis pulses. No cyanosis, clubbing, or edema. SKIN: No gross abnormalities. PERTINENT LABORATORY DATA: CK and troponin are negative. Hemoglobin 12.9. Creatinine 0.86. BNP of 1041. IMPRESSION: 1. Chest pain. 2. Cardiomyopathy. 3. Substance abuse. RECOMMENDATIONS: Mr. Fong has not had a recent stress study performed. We would recommend a stress study in a.m. His symptoms are felt to be atypical. I do not find where he has undergone coronary angiography in the past. Further recommendations pending the above. Job ID: [id number]
[2019-07-28] MEDS: Nitroglycerin 2% Ointment 1 INCH/1 GM Packet TOP SCH ×2 (15:22→21:05)
[2019-07-29] MEDS: Nitroglycerin 2% Ointment 1 INCH/1 GM Packet TOP SCH ×2 (04:01→16:00)
[2019-07-29 05:25] LABS: Eosinophils 4 % (0-10); Hemoglobin 11.8 g/dL (14.0-18.0); Lymphocytes 19 % (21-51); MDiff Complete? YES; Mean Corpuscular HGB CONC 32.7 g/dL (32.0-36.0); Mean Corpuscular Hemoglobin 27.8 pg (27.0-31.0); Mean Corpuscular Volume 85.1 fL (78.0-98.0); Mean Platelet Volume 8.7 fL (7.4-10.4); Monocytes 7 % (0-10); Neutrophil 70 % (42-75); Nucleated RBC 1 % (0); Platelet Count 176 thou/uL (130-400); Platelet Morphology Comment Appears Adequate; RBC Distribution Width 15.1 % (11.5-14.5); Red Blood Cell (RBC) Count 4.23 mill/uL (4.70-6.10); White Blood Cell (WBC) Count 3.9 thou/uL (4.8-10.8)
[2019-07-29 05:32] LABS: Anion Gap 9 mmol/L (10-20); BUN (Urea Nitrogen) 18 mg/dL (8.9-20.6); Calc. Creatinine Clearance 128 mL/min (70-130); Calcium 8.5 mg/dL (7.8-10.44); Carbon Dioxide 28 mmol/L (22-29); Chloride 109 mmol/L (98-107); Estimated GFR-MDRD Greater than 90; Glucose 101 mg/dL (70-105); Potassium 4.3 mmol/L (3.5-5.1); Sodium 142 mmol/L (136-145)
[2019-07-29] MEDS: Spironolactone 25 MG TAB PO SCH (13:05)
[2019-07-29] MEDS: Lisinopril 10 MG TAB PO SCH (13:05)
[2019-07-29] MEDS: Furosemide 40 MG/4 ML VIAL SLOW IVP SCH (13:06)
[2019-07-29] MEDS: Enoxaparin Sodium 40 MG/0.4 ML SYRINGE SC SCH (13:06)
[2019-07-29] MEDS: Carvedilol 6.25 MG TAB PO SCH ×2 (13:06→20:57)
[2019-07-29] MEDS ORDERED: ADENOSINE 60 MG/20 ML VIAL ONE (13:55)
--- NOTE | 2019-07-29 14:03 | NM ---
MYOCARDIAL PERFUSION SCAN: HISTORY: Chest pain The patient was given 10 mCi of technetium sestamibi for rest imaging and 32 mCi for stress imaging. Patient was stressed according to Adenosine protocol. Left ventricle was imaged with SPECT imaging. A ttenuation correction images obtained. FINDINGS: There is left ventricular dilatation. There is a fixed defect in the inferolateral wall. Thinning of activity in the anterior septal region is seen on stress and rest images. No definite reversible isch emia. Wall motion shows global hypokinesis. Ejection fraction recorded at 19%. IMPRESSION: Left ventricular dilatation. Fixed defect in inferior wall and thinning activity with probable fixed defect in the anterior septal region. No definite reversible ischemia. POS: ENOC
[2019-07-29] MEDS ORDERED: Communication Order-Pharmacy FS SCH (16:45)
[2019-07-29 17:52] LABS: Amphetamine Not Detected (NotDetected); Barbiturates Screen Not Detected (NotDetected); Benzodiazepine Screen Not Detected (NotDetected); Cocaine Metabolite Screen Not Detected (NotDetected); Medtox Control Line Valid? VALID (VALID); Medtox Reader # READER 1; Methadone Not Detected (NotDetected); Methamphetamine Not Detected (NotDetected); Opiate Screen Not Detected (NotDetected); Oxycodone Screen Not Detected (NotDetected); Phencyclidine (PCP) Not Detected (NotDetected); THC/Cannabinoid Screen Not Detected (NotDetected); Tricyclic Screen Not Detected (NotDetected)
--- NOTE | 2019-07-29 23:23 | PRG ---
DATE OF SERVICE: 07/29/2019 SUBJECTIVE: A 38-year-old male with congestive heart failure, presented to the hospital with chest discomfort. His troponins were negative. He denies any chest discomfort at this time. He underwent a stress test that showed fixed defect in the inferior wall and thinning activity with probable fixed defect in the anterior septal region. He underwent an echocardiogram that showed ejection fraction of 5% to 10% with moderately enlarged right ventricular cavity and yslinyby-ck-bmotza mitral regurgitation. He denies any chest discomfort or shortness of breath at this time. OBJECTIVE: VITAL SIGNS: Temperature 98.3, pulse 91, respirations of 19, blood pressure 125/85, and O2 saturation 100% on room air. GENERAL: A 38-year-old male, in no apparent distress. LUNGS: Clear to auscultation bilaterally. No wheezing, rales, or rhonchi. HEART: S1 and S2 present. Regular rate and rhythm. No rubs or gallops. There is 3/6 systolic murmur over the mitral area. ABDOMEN: Soft, nontender, bowel sounds present. EXTREMITIES: No calf tenderness. NEUROLOGIC: Grossly nonfocal. LABORATORY FINDINGS: WBC 3.9 with hemoglobin 11.8, hematocrit 36, platelet 176. Troponin negative. BNP 1041. BUN 18, creatinine 0.98. Urine drug screen was negative. Cardiolite stress test as discussed above. EKG by my review showed sinus rhythm. IMPRESSION: 1. Chest discomfort. 2. Abnormal stress test. 3. History of nonischemic cardiomyopathy. 4. History of polysubstance abuse. 5. Acute on chronic systolic and diastolic heart failure exacerbation, ejection fraction 5% to 10% range. 6. Moderate protein-calorie malnutrition. 7. Chronic anemia. 8. Hypertension. 9. Hyperlipidemia. 10. Sgxbpuwf-og-sqsamp mitral regurgitation. 11. Severe tricuspid regurgitation. PLAN: The patient is scheduled for cardiac catheterization in a.m. We will start the patient on aspirin. We will discontinue nitroglycerin patch. Continue lisinopril, Aldactone, and carvedilol. We will continue IV Lasix. Job ID: [id number]
[2019-07-30] MEDS: Carvedilol 6.25 MG TAB PO SCH (05:58)
[2019-07-30] MEDS ORDERED: Sodium Chloride 0.9% 1,000 ML IV SCH ×2 (06:00→07:30)
[2019-07-30] MEDS ORDERED: Lidocaine 1% (PF) 30 ML VIAL ONE (06:34)
[2019-07-30 06:59] LABS: Anion Gap 10 mmol/L (10-20); BUN (Urea Nitrogen) 19 mg/dL (8.9-20.6); Calc. Creatinine Clearance 123 mL/min (70-130); Calcium 8.3 mg/dL (7.8-10.44); Carbon Dioxide 25 mmol/L (22-29); Chloride 109 mmol/L (98-107); Estimated GFR-MDRD Greater than 90; Glucose 104 mg/dL (70-105); Magnesium 1.6 mg/dL (1.6-2.6); Potassium 3.7 mmol/L (3.5-5.1); Sodium 140 mmol/L (136-145)
[2019-07-30] MEDS ORDERED: Fentanyl 100 MCG/2 ML VIAL ONE (07:04)
[2019-07-30] MEDS ORDERED: Heparin 10,000 UNITS/1 ML VIAL ONE (07:04)
[2019-07-30] MEDS ORDERED: Midazolam HCl 2 mg/2 ml Vial ONE (07:05)
[2019-07-30] MEDS ORDERED: Protamine Sulfate 50 MG/5 ML VIAL ONE (07:17)
[2019-07-30] MEDS ORDERED: Sodium Chloride 0.9% 200 ML IV PRN (07:30)
[2019-07-30] MEDS ORDERED: Acetaminophen/Codeine 30-300mg Tablet PO PRN ×2 (07:30)
[2019-07-30] MEDS ORDERED: Nitroglycerin 0.4 MG TAB (25 Tab Bottle) SL PRN (07:30)
[2019-07-30] MEDS ORDERED: Magnesium 2 GM/50 ML 2 GM in Premix Bag 1 BAG IVPB SCH (08:00)
[2019-07-30] MEDS ORDERED: Magnesium Sulfate 2 GM in Sodium Chloride 0.9% 100 ML IVPB SCH (08:00)
[2019-07-30] MEDS ORDERED: Aspirin 325 mg Enteric Coated Tablet PO SCH (09:00)
[2019-07-30] MEDS: Spironolactone 25 MG TAB PO SCH (09:05)
[2019-07-30] MEDS: Lisinopril 10 MG TAB PO SCH (09:05)
[2019-07-30] MEDS: Furosemide 40 MG/4 ML VIAL SLOW IVP SCH (09:07)
[2019-07-30 12:00] VITALS: BP 107/85; TEMP 97.7
[2019-07-30] MEDS ORDERED: Furosemide 20 MG TAB PO SCH (14:00)
[2019-07-30] MEDS ORDERED: Iopamidol 370 76% 100 ML VIAL ONE (14:35)
--- NOTE | 2019-07-30 16:55 | DIS ---
DATE OF ADMISSION: 07/28/2019 DATE OF DISCHARGE: 07/30/2019 DISCHARGE DISPOSITION: The patient is an inmate. FOLLOWUP: 1. Follow up with primary care physician at the facility. 2. Follow up with Dr. Paige in 2 weeks. ALLERGIES: NO KNOWN DRUG ALLERGIES. BASIC METABOLIC PROFILE AFTER 1 WEEK IS RECOMMENDED. PRIMARY CARE PHYSICIAN ADVISED TO FOLLOW. DISCHARGE MEDICATIONS: 1. Aspirin 81 mg daily. 2. Carvedilol 12.5 mg b.i.d. 3. Lasix 40 mg b.i.d. 4. Lisinopril 20 mg daily. 5. Aldactone 25 mg daily. 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 Timothy Paige. The patient was seen and examined on the day of discharge. Denies any new complaints. No chest pain, shortness of breath, or palpitations reported. DIAGNOSTIC TESTS: 1. Chest x-ray on admission showed cardiomegaly with mild pulmonary vascular congestion. 2. Echocardiogram showed left ventricular ejection fraction of 5% to 10% with moderate pulmonary regurgitation, severe tricuspid regurgitation as well as diastolic dysfunction. 3. On July 30, 2019, the patient underwent cardiac catheterization that showed normal coronaries with ejection fraction of 5% to 10%. BRIEF HOSPITAL COURSE: The patient is a 38-year-old male with cardiomyopathy and polysubstance abuse in the past, presented to the hospital with chest discomfort. Please refer to the history and physical by Dr. Booth for further details. The patient was admitted to the hospital with a diagnosis of chest discomfort, rule out acute coronary syndrome, as well as congestive heart failure exacerbation. He was started on gentle diuretics. He was evaluated by Cardiology. He underwent echocardiogram that showed ejection fraction of 5% to 10%. He underwent cardiac catheterization to rule out coronary artery disease. His cardiac catheterization showed normal coronaries. He has been cleared by Cardiology for discharge. FINAL DIAGNOSES: 1. Acute on chronic systolic/diastolic heart failure exacerbation. 2. Chest discomfort, multifactorial. 3. Nonischemic cardiomyopathy, ejection fraction 5% to 10%, ACC stage C. 4. History of single-chamber implantable cardioverter-defibrillator. 5. History of noncompliance with medications for last 2 weeks. 6. Nonsustained ventricular tachycardia. 7. History of methamphetamine abuse. 8. Tobacco dependence, the patient was counseled. 9. Hypertension. 10. Abnormal stress test. 11. Moderate protein-calorie malnutrition. 12. Chronic anemia. 13. Hypertension. 14. Hyperlipidemia. 15. Nyqukhfz-xf-jcjcgd mitral regurgitation. 16. Severe tricuspid regurgitation next. PLAN: Plan was discussed with the patient in detail. He stated understanding. Job ID: [id number]
[2019-07-31] MEDS ORDERED: Aspirin 81 mg Enteric Coated Tablet PO SCH (09:00)
--- NOTE | 2019-08-04 02:44 | EKG ---
Test Reason : Blood Pressure : / mmHG Vent. Rate : 112 BPM Atrial Rate : 112 BPM P-R Int : 132 ms QRS Dur : 094 ms QT Int : 350 ms P-R-T Axes : 055 -26 119 degrees QTc Int : 477 ms Sinus tachycardia Left atrial enlargement Left ventricular hypertrophy Left atrial enlargement Abnormal ECG Confirmed by JEMIMA ASCENCIO, BRENDA Heath ([id number]), photograph editor JOÃO KERR ([id number]) on 08/04/2019 2:44:19 AM Referred By: Confirmed By:BRENDA ONOFRE MD
== END 2019-07-30 15:47 ==
LOC: ERS 02:47 → 2SW 04:15
PROVIDERS: ADMIT Hospitalist; ATTEND Hospitalist
PROC: 4A023N7 Measurement of Cardiac Sampling and Pressure, Left Heart, Percutaneous Approach (ICD-10-PCS; principal; 2019-07-30)
DX: R07.89 Other chest pain (principal); I11.0 Hypertensive heart disease with heart failure; I50.43 Acute on chronic combined systolic (congestive) and diastolic (congestive) heart failure; I08.1 Rheumatic disorders of both mitral and tricuspid valves; E78.5 Hyperlipidemia, unspecified; I42.8 Other cardiomyopathies; E44.0 Moderate protein-calorie malnutrition; F17.210 Nicotine dependence, cigarettes, uncomplicated; D64.9 Anemia, unspecified
CPT/HCPCS: 36415; 71045; 78452; 80048; 80053; 80306; 82553; 83735; 83880; 84484; 85025; 85347; 93005; 93017; 93306; 93458; 96372; 96374; 96375; 96376; 99152; A9500; C1769; G0378; J0153; J1644; J1650; J1940; J2001; J2250; J2720; J3010; J3475; Q9967